=== PATIENT | female | born 1955 | race Caucasian/White ===

== ENCOUNTER 2017-01-16 11:43 | Inpatient (IN) ==
[2017-01-16] MEDS ORDERED: *HR* Morphine 2 MG/ML SYRINGE IVP ONE (11:57)
[2017-01-16] MEDS ORDERED: Ondansetron 4 MG/2 ML VIAL IVP ONE (11:57)
[2017-01-16 12:23] LABS: Basophils % 0.3 %; Eosinophils # 0.1 K/mcL (0.0-0.6); Eosinophils % 0.9 %; Hematocrit 36.8 % (35.3-44.9); Immature Granulocytes % 0.8 % (0-4); Lymphocytes # 1.1 K/mcL (0.6-4.6); Lymphocytes % 11.3 %; Mean Corpuscular HGB Conc 29.9 g/dL (31.6-35.5); Mean Corpuscular Hemoglobin 25.1 pg (28.0-33.3); Mean Platelet Volume 9.5 fL (9.4-12.4); Monocytes # 0.6 K/mcL (0.0-1.3); Monocytes % 5.5 %; Neutrophils # 8.2 K/mcL (1.6-8.9); Platelet Count 220 K/mcL (140-400); Red Blood Count 4.38 M/mcL (3.82-4.97); Red Cell Distribution Width 15.1 % (11.5-14.5); Segmented Neutrophils % 81.2 %
[2017-01-16 12:37] LABS: Albumin/Globulin Ratio 0.5 (1.1-2.2); Bilirubin,Direct 0.2 mg/dL (0.0-0.5); Bilirubin,Indirect 0.2 mg/dL (0.0-1.2); Bilirubin,Total 0.4 mg/dL (0.2-1.2); Calcium 9.9 mg/dL (8.6-10.8); Globulin 5.9 g/dL (2.4-3.5); Potassium 4.5 mEq/L (3.5-4.5); Total Protein 8.9 g/dL (6.0-8.3)
[2017-01-16 13:11] LABS: Bilirubin,Urine Negative (Negative); Blood,Urine Large (Negative); Clarity,Urine Turbid (Clear); Color,Urine Red (Yellow); Glucose,Urine (UA) Normal (Normal); Ketones,Urine Trace mg/dL (Negative); Leukocyte Esterase,Urine Large (Negative); Nitrite,Urine Positive (Negative); PH,Urine 8.5 pH Units (5.0-8.0); Protein,Urine 100 mg/dL (Neg-Trace); Specific Gravity,Urine 1.016 (1.010-1.025); Urobilinogen,Urine Normal (Normal)
[2017-01-16 13:13] LABS: Bacteria,Urine Many per hpf (None-Few); Squamous Epithelial Cell,Urine Many per lpf (None-Few); WBC,Urine TNTC per hpf (0-3)
[2017-01-16 13:14] LABS: RBC,Urine 30-50 per hpf (0-3)
[2017-01-16] MEDS ORDERED: *HR* HYDROcodone/Acet 5/325 mg TABLET PO PRN (15:37)
[2017-01-16] MEDS ORDERED: Acetaminophen 325 MG TABLET PO PRN (15:37)
[2017-01-16] MEDS ORDERED: Naloxone 0.4 MG/ML INJ IVP PRN (15:37)
--- NOTE | 2017-01-16 15:53 | Internal Med History&Physical ---
Date of Encounter: 01/16/17 Time of Encounter: 15:51 Assessment and Plan (1) Obstructive uropathy Current visit: Yes Status: Acute Patient with right sided abdominal pain, nausea and vomiting. CT abd and pelvis showed mild bilateral hydroureteronephrosis due to obstructing 4mm calculus in distal right ureter and 3mm calculus in distal left ureter. IV fluids 0.9NS at 100ml/hr Urology consulted for bilateral obstruction. clear liquid diet until midnight. NPO after midnight for likely cystoscopy tomorrow. (2) Renal calculus, bilateral Current visit: Yes Status: Acute Patient with right sided abdominal pain, nausea and vomiting. CT abd and pelvis showed mild bilateral hydroureteronephrosis due to obstructing 4mm calculus in distal right ureter and 3mm calculus in distal left ureter. IV fluids 0.9NS at 100ml/hr Urology consulted for bilateral obstruction. clear liquid diet until midnight. NPO after midnight for likely cystoscopy tomorrow. (3) Seizure disorder Current visit: Yes Status: Acute History of seizures. Continue home dose of Keppra. Seizure precautions. (4) Urinary tract infection Current visit: Yes Status: Acute UA consistent with UTI. Last culture was quiñonez-sensitive. Rocephin IVPB daily. Await culture resutls. Qualifiers: Urinary tract infection type: site unspecified Hematuria presence: with hematuria Qualified Code(s): N39.0 - Urinary tract infection, site not specified; R31.9 - Hematuria, unspecified (5) DVT prophylaxis Current visit: No Status: Acute anti-embolic stockings patient on xarelto for history of DVTs and CVAs. Holding Xarelto for likely cystoscopy in the morning. Internal Medicine - H&P: HPI Chief complaint: abdominal pain, nausea and vomiting Admitted From: Emergency Dept Plans for Post Hospital Care: Transfer [facility] History of present illness: Ms. Jolly is a 61 year old female with history of DVT, PE, multiple CVAs, with residual left-sided weakness, seizure disorder, GERD, anxiety, who presented from her long-term care facility with complaints of right-sided abdominal pain. Patient reports that the pain started in the middle the night, was initially dull and then progressed to being sharp and worsened. She reports she had some nausea and vomiting this morning as well. Patient denies any headache, lightheadedness, chest pain, palpitations, shortness of breath, diarrhea, fever , chills, sweats. She has an indwelling Clemente catheter, and does not relate any dysuria. Evaluation in the emergency department included a CT of abdomen and pelvis which showed mild bilateral hydroureteronephrosis developed due to an obstructing 4 mm calculus in the distal right ureter and a 3 mm calculus in the distal left ureter. Creatinine is also elevated at 1.19. UA was consistent with UTI with hematuria. On exam, patient alert and oriented, morbidly obese, she does have tenderness on the right side of her abdomen, heart has regular rate and rhythm, lungs are clear bilaterally to auscultation. Past Med Surg Social Fam HX - Past Medical History Medical history: CVA, hyperlipidemia, hypertension, seizures, other Psychiatric history: anxiety, depression - Past Surgical History Surgical History: cholecystectomy, hysterectomy, other - Social History Smoking Status: Never smoker Smokeless Tobacco Status: No Alcohol use: none Drug use: none - Family History Father Living Status: Hx Family Cardiac Disorders: Yes (Congestive heart failure) Mother Living Status: Hx Family Cardiac Disorders: Yes (Cardiac disease) Hx Family Endocrine Disorder: Yes (Diabetes) Internal Medicine - H&P: Meds LevETIRAcetam [Keppra] 1,500 mg PO BID 04/23/15 [History] Melatonin [Melatin] 3 mg PO HS 04/23/15 [History] Multivit with Iron-Minerals [Compete] 1 tab PO QAM 04/23/15 [History] Omeprazole [PriLOSEC] 20 mg PO QAM 04/23/15 [History] Simvastatin [Zocor] 20 mg PO QPM 04/23/15 [History] Citalopram [CeleXA] 40 mg PO DAILY 04/24/15 [History] Quetiapine Fumarate [Seroquel] 50 mg PO QAM 04/24/15 [History] Quetiapine Fumarate [Seroquel] 100 mg PO HS 04/24/15 [History] Rivaroxaban [Xarelto] 20 mg PO DAILY 04/24/15 [History] Dextran 70/Hypromellose [Artificial Tears Eye Drops] 1 drop OP BID 01/16/17 [ History] Ketotifen Fumarate [Zaditor] 1 drop OP BID 01/16/17 [History] LORazepam [Ativan] 1 mg PO Q8H PRN 01/16/17 [History] Menthol [Biofreeze] 1 appl TP TID 01/16/17 [History] Allergies No Known Allergies Allergy (Verified 03/15/15 09:38) All Systems PM: A 10-system review of systems was performed and is negative for pertinent findings except as documented above in the HPI. - Constitutional Constitutional: no chills, no fever(s), no night sweats - EENT Eyes: no change in vision, no discharge, no pain, no photophobia Ears: no ear discharge, no ear pain, no tinnitus Nose, mouth and throat: no dysphagia, no nasal discharge, no neck pain, no sore throat - Cardiovascular Cardiovascular ROS IM: no chest pain, no diaphoresis, no dyspnea, no lightheadedness, no palpitations, no syncope - Respiratory Respiratory: no cough, no dyspnea, no wheezing, no excessive phlegm production - Gastrointestinal Gastrointestinal: abdominal pain, nausea, vomiting, no diarrhea, no hematemesis , no hematochezia, no melena - Genitourinary Genitourinary: no change in urinary stream, no dysuria, no flank pain, no hematuria - Musculoskeletal Musculoskeletal ROS IM: no numbness, no tingling - Integumentary Integumentary IM: no rash, no unusual bruising - Neurological Neurological ROS: focal weakness (chronic left sided), no confusion, no convulsions, no numbness, no tingling, no tremor(s) - Hematologic/Lymphatic Hematologic/Lymphatic: no easy bruising - Constitutional Vitals: Temp Pulse Resp BP Pulse Ox 98.2 F 75 18 128/76 96 01/16/17 11:45 01/16/17 15:04 01/16/17 15:22 01/16/17 15:22 01/16/17 15:04 General appearance: Present: A&O X 3, morbidly obese - Head Head exam: Present: atraumatic, normocephalic - Eye Eye exam: Present: PERRL, conjuntiva pink, sclera anicteric Pupils: Present: PERRL - Neck Neck exam general surgery: Present: supple, trachea midline. Absent: lymphadenopathy - Respiratory Respiratory exam: Present: CTAB. Absent: accessory muscle use, rales, rhonchi, wheezes - Cardiovascular Cardiovascular exam: Present: RRR, +S1, +S2. Absent: diastolic murmur, gallop, rubs, systolic murmur - GI/Abdominal GI/Abdominal exam: Present: normal bowel sounds, soft, tenderness (right sided) , no peritoneal signs. Absent: distended - Extremities Exam Extremities exam: Present: warm, radial pulses palpable and symetrical. Absent : calf tenderness, cyanotic, pedal edema - Neurological Exam Neurological exam: Present: CN II-XII intact, oriented X3. Absent: no focal deficits, strengths equal and symetr throughout, facial droop, speech deficit - Skin Skin exam: Present: dry, intact Internal Med - H&P Results - Labs CBC & Chem 7: 01/16/17 12:17 01/16/17 12:17 Labs: All Lab Results (24 Hours) 01/16/17 01/16/17 01/16/17 Range/Units 12:17 12:17 12:17 WBC 10.1 (4.3-11.1) K/mcL RBC 4.38 (3.82-4.97) M/mcL Hgb 11.0 L (11.5-15.4) g/dL Hct 36.8 (35.3-44.9) % MCV 84.0 (83.0-100.0) fL MCH 25.1 L (28.0-33.3) pg MCHC 29.9 L (31.6-35.5) g/dL RDW 15.1 H (11.5-14.5) % Plt Count 220 (140-400) K/mcL MPV 9.5 (9.4-12.4) fL Immature Gran % 0.8 (0-4) % Seg Neutrophils % 81.2 % Lymphocytes % 11.3 % Monocytes % 5.5 % Eosinophils % 0.9 % Basophils % 0.3 % Neutrophils # 8.2 (1.6-8.9) K/mcL Lymphocytes # 1.1 (0.6-4.6) K/mcL Monocytes # 0.6 (0.0-1.3) K/mcL Eosinophils # 0.1 (0.0-0.6) K/mcL Basophils # 0.0 (0.0-0.2) K/mcL Immature Plt Fraction 2.0 (1.1-6.1) % Sodium 141 (136-145) mEq/L Potassium 4.5 (3.5-4.5) mEq/L Chloride 107 (98-109) mEq/L Carbon Dioxide 25 (19-29) mEq/L BUN 19 (7-20) mg/dL Creatinine 1.19 H (0.57-1.11) mg/dL Est GFR ( Amer) 56 L (> 60) Est GFR (Non-Af Amer) 46 L (> 60) BUN/Creatinine Ratio 16 (6-26) Glucose 138 H (70-99) mg/dL Calculated Osmolality 296 (280-300) Lactic Acid 1.4 (0.5-2.2) mmol/L Calcium 9.9 (8.6-10.8) mg/dL Total Bilirubin 0.4 (0.2-1.2) mg/dL Direct Bilirubin 0.2 (0.0-0.5) mg/dL Indirect Bilirubin 0.2 (0.0-1.2) mg/dL AST 17 (5-34) Units/L ALT 13 (0-55) Units/L Alkaline Phosphatase 87 (38-126) Units/L Troponin I (0-0.03) ng/mL Serum Total Protein 8.9 H (6.0-8.3) g/dL Albumin 3.0 L (3.5-5.0) g/dL Globulin 5.9 H (2.4-3.5) g/dL Albumin/Globulin Ratio 0.5 L (1.1-2.2) Amylase 80 (25-125) Units/L Lipase 51 (8-78) Units/L Urine Color (Yellow) Urine Clarity (Clear) Urine pH (5.0-8.0) pH Units Ur Specific [place] (1.010-1.025) Urine Protein (Neg-Trace) mg/dL Urine Glucose (UA) (Normal) mg/dL Urine Ketones (Negative) mg/dL Urine Blood (Negative) Urine Nitrite (Negative) Urine Bilirubin (Negative) Urine Urobilinogen (Normal) mg/dL Ur Leukocyte Esterase (Negative) Urine Microscopic RBC (0-3) per hpf Urine Microscopic WBC (0-3) per hpf Ur Squamous Epith Cells (None-Few) per lpf Urine Bacteria (None-Few) per hpf Ur Culture Indicated? (NO) 01/16/17 01/16/17 Range/Units 12:17 13:06 WBC (4.3-11.1) K/mcL RBC (3.82-4.97) M/mcL Hgb (11.5-15.4) g/dL Hct (35.3-44.9) % MCV (83.0-100.0) fL MCH (28.0-33.3) pg MCHC (31.6-35.5) g/dL RDW (11.5-14.5) % Plt Count (140-400) K/mcL MPV (9.4-12.4) fL Immature Gran % (0-4) % Seg Neutrophils % % Lymphocytes % % Monocytes % % Eosinophils % % Basophils % % Neutrophils # (1.6-8.9) K/mcL Lymphocytes # (0.6-4.6) K/mcL Monocytes # (0.0-1.3) K/mcL Eosinophils # (0.0-0.6) K/mcL Basophils # (0.0-0.2) K/mcL Immature Plt Fraction (1.1-6.1) % Sodium (136-145) mEq/L Potassium (3.5-4.5) mEq/L Chloride (98-109) mEq/L Carbon Dioxide (19-29) mEq/L BUN (7-20) mg/dL Creatinine (0.57-1.11) mg/dL Est GFR ( Amer) (> 60) Est GFR (Non-Af Amer) (> 60) BUN/Creatinine Ratio (6-26) Glucose (70-99) mg/dL Calculated Osmolality (280-300) Lactic Acid (0.5-2.2) mmol/L Calcium (8.6-10.8) mg/dL Total Bilirubin (0.2-1.2) mg/dL Direct Bilirubin (0.0-0.5) mg/dL Indirect Bilirubin (0.0-1.2) mg/dL AST (5-34) Units/L ALT (0-55) Units/L Alkaline Phosphatase (38-126) Units/L Troponin I 0.00 (0-0.03) ng/mL Serum Total Protein (6.0-8.3) g/dL Albumin (3.5-5.0) g/dL Globulin (2.4-3.5) g/dL Albumin/Globulin Ratio (1.1-2.2) Amylase (25-125) Units/L Lipase (8-78) Units/L Urine Color Red A (Yellow) Urine Clarity Turbid A (Clear) Urine pH 8.5 H (5.0-8.0) pH Units Ur Specific [place] 1.016 (1.010-1.025) Urine Protein 100 H (Neg-Trace) mg/dL Urine Glucose (UA) Normal (Normal) mg/dL Urine Ketones Trace H (Negative) mg/dL Urine Blood Large H (Negative) Urine Nitrite Positive A (Negative) Urine Bilirubin Negative (Negative) Urine Urobilinogen Normal (Normal) mg/dL Ur Leukocyte Esterase Large H (Negative) Urine Microscopic RBC 30-50 H (0-3) per hpf Urine Microscopic WBC TNTC H (0-3) per hpf Ur Squamous Epith Cells Many H (None-Few) per lpf Urine Bacteria Many H (None-Few) per hpf Ur Culture Indicated? YES A (NO) - Diagnostic Studies CT scan - abdomen Additional comments: Abdomen/Pelvis CT 01/16/17 11:57 IMPRESSION: 1. Mild bilateral hydroureteronephrosis has developed due to an obstructing 4 mm calculus in the distal right ureter and an obstructing 3 mm calculus in the distal left ureter. 2. No other acute abnormality in the abdomen or pelvis. D/ / 01/16/2017 14:21:05 Michael Wayne MD / diana Interpreting Provider: Michael Wayne MD
--- NOTE | 2017-01-16 15:54 | Emergency Department Note ---
Disposition Clinical Impression: Kidney stone Urinary tract infection Qualifiers: Urinary tract infection type: site unspecified Hematuria presence: with hematuria Qualified Code(s): N39.0 - Urinary tract infection, site not specified ; R31.9 - Hematuria, unspecified Disposition: Admitted As Inpatient General Adult HPI - General Chief complaint: ED Abdominal Pain Stated complaint: Abd Pain N/V Time Seen by Provider: 01/16/17 11:54 Source: patient, EMS Limitations: no limitations Nursing Notes Reviewed: Yes Vital Signs Reviewed: Yes - History of Present Illness HPI Narrative: 61-year-old female presenting with concern for abdominal pain. She is residing at a local nursing facility after having a stroke. She has no indwelling Clemente catheter. Her pain started acutely today and was located on the right side of her abdomen. She denied recent abdominal surgeries. She has had her gallbladder taken out in the past. She has no vomiting or nausea. She has no history of kidney stones. Pain Scale: 0 - Related Data Home Medications Medication Instructions Recorded Confirmed LevETIRAcetam [Keppra] 1,500 mg PO BID 04/23/15 04/23/15 Melatonin [Melatin] 3 mg PO HS 04/23/15 04/23/15 Multivit with Iron-Minerals 1 each PO QAM 04/23/15 04/23/15 [Compete] Omeprazole [PriLOSEC] 20 mg PO QAM 04/23/15 04/23/15 Simvastatin [Zocor] 20 mg PO QPM 04/23/15 04/23/15 Citalopram [CeleXA] 40 mg PO DAILY 04/24/15 04/24/15 Quetiapine Fumarate [Seroquel] 50 mg PO QAM 04/24/15 04/24/15 Quetiapine Fumarate [Seroquel] 100 mg PO HS 04/24/15 04/24/15 Rivaroxaban [Xarelto] 20 mg PO 04/24/15 04/24/15 Xanax 04/24/15 04/24/15 Previous Rx's Medication Instructions Recorded Amoxicillin/Clavulanate [Augmentin] 875 mg PO BIDWM 3 Days 04/30/15 Allergies Allergy/AdvReac Type Severity Reaction Status Date / Time No Known Allergies Allergy Verified 03/15/15 09:38 All systems ED: reviewed and negative except as stated. 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 - Social History Smoking Status: Never smoker Smokeless Tobacco Status: No Alcohol use: Reports: none Drug use: Reports: none Physical Exam - General Limitations: no limitations General appearance: alert, in no apparent distress - Head Head exam: atraumatic - Eye Eye exam: Present: normal appearance - ENT ENT exam: normal exam, normal oropharynx - Neck Neck exam: Present: normal inspection, full ROM - Chest Chest inspection: Present: normal inspection - Respiratory Respiratory exam: Present: normal lung sounds bilaterally - Cardiovascular Cardiovascular exam: Present: regular rate - Abdominal Exam Abdominal exam: Present: tenderness Abdominal tenderness: Present: RLQ - Extremities Exam Extremities exam: Present: normal inspection, full ROM - Expanded Lower Extremity Exam Hip/Pelvis exam: Present: normal inspection, full ROM Upper leg exam: Present: normal inspection, full ROM Knee exam: Present: normal inspection, full ROM Neurovascular/Tendon exam: Present: normal capillary refill, pulse deficit Gait: observed and normal, not tested/not observed - Back Exam Back exam: Present: normal inspection, full ROM - Neurological Exam Neurological exam: Present: alert, oriented X3, CN II-XII intact - Psychiatric Psychiatric exam: Present: normal affect, normal mood - Skin Skin exam: Present: warm, dry Course Vital Signs Temperature 98.2 F 01/16/17 11:45 Pulse Rate 74 01/16/17 11:45 Respiratory Rate 17 01/16/17 11:45 Blood Pressure 127/73 01/16/17 11:45 O2 Sat by Pulse Oximetry 96 01/16/17 11:45 Temperature 98.2 F 01/16/17 11:45 Pulse Rate 75 01/16/17 15:04 Respiratory Rate 18 01/16/17 15:22 Blood Pressure 128/76 01/16/17 15:22 O2 Sat by Pulse Oximetry 96 01/16/17 15:04 Oxygen Delivery Oxygen Delivery Room Air Medical Decision Making - MDM Narrative Medical decision making narrative: Female patient with bilateral obstructing kidney stones. Clemente catheter is in place. She does have evidence of urinary tract infection. There is concern for underlying infected stone. I did notify the on-call urologist. Antibiotics and blood cultures were obtained. Urology consult was placed. Her vital signs are stable at this time. IV fluids were given. She will be admitted for monitoring, urology evaluation, possibly urology intervention for infected stone. - Medical Records Medical records reviewed: Yes I reviewed the patient's medical records. - Lab Data Lab results reviewed: Yes I reviewed the patient's lab results. Result diagrams: 01/16/17 12:17 01/16/17 12:17 Lab Results 01/16/17 01/16/17 01/16/17 Range/Units 12:17 12:17 12:17 WBC 10.1 (4.3-11.1) K/mcL RBC 4.38 (3.82-4.97) M/mcL Hgb 11.0 L (11.5-15.4) g/dL Hct 36.8 (35.3-44.9) % MCV 84.0 (83.0-100.0) fL MCH 25.1 L (28.0-33.3) pg MCHC 29.9 L (31.6-35.5) g/dL RDW 15.1 H (11.5-14.5) % Plt Count 220 (140-400) K/mcL MPV 9.5 (9.4-12.4) fL Immature Gran % 0.8 (0-4) % Seg Neutrophils % 81.2 % Lymphocytes % 11.3 % Monocytes % 5.5 % Eosinophils % 0.9 % Basophils % 0.3 % Neutrophils # 8.2 (1.6-8.9) K/mcL Lymphocytes # 1.1 (0.6-4.6) K/mcL Monocytes # 0.6 (0.0-1.3) K/mcL Eosinophils # 0.1 (0.0-0.6) K/mcL Basophils # 0.0 (0.0-0.2) K/mcL Immature Plt Fraction 2.0 (1.1-6.1) % Sodium 141 (136-145) mEq/L Potassium 4.5 (3.5-4.5) mEq/L Chloride 107 (98-109) mEq/L Carbon Dioxide 25 (19-29) mEq/L BUN 19 (7-20) mg/dL Creatinine 1.19 H (0.57-1.11) mg/dL Est GFR ( Amer) 56 L (> 60) Est GFR (Non-Af Amer) 46 L (> 60) BUN/Creatinine Ratio 16 (6-26) Glucose 138 H (70-99) mg/dL Calculated Osmolality 296 (280-300) Lactic Acid 1.4 (0.5-2.2) mmol/L Calcium 9.9 (8.6-10.8) mg/dL Total Bilirubin 0.4 (0.2-1.2) mg/dL Direct Bilirubin 0.2 (0.0-0.5) mg/dL Indirect Bilirubin 0.2 (0.0-1.2) mg/dL AST 17 (5-34) Units/L ALT 13 (0-55) Units/L Alkaline Phosphatase 87 (38-126) Units/L Troponin I (0-0.03) ng/mL Serum Total Protein 8.9 H (6.0-8.3) g/dL Albumin 3.0 L (3.5-5.0) g/dL Globulin 5.9 H (2.4-3.5) g/dL Albumin/Globulin Ratio 0.5 L (1.1-2.2) Amylase 80 (25-125) Units/L Lipase 51 (8-78) Units/L Urine Color (Yellow) Urine Clarity (Clear) Urine pH (5.0-8.0) pH Units Ur Specific [place] (1.010-1.025) Urine Protein (Neg-Trace) mg/dL Urine Glucose (UA) (Normal) mg/dL Urine Ketones (Negative) mg/dL Urine Blood (Negative) Urine Nitrite (Negative) Urine Bilirubin (Negative) Urine Urobilinogen (Normal) mg/dL Ur Leukocyte Esterase (Negative) Urine Microscopic RBC (0-3) per hpf Urine Microscopic WBC (0-3) per hpf Ur Squamous Epith Cells (None-Few) per lpf Urine Bacteria (None-Few) per hpf Ur Culture Indicated? (NO) 01/16/17 01/16/17 Range/Units 12:17 13:06 WBC (4.3-11.1) K/mcL RBC (3.82-4.97) M/mcL Hgb (11.5-15.4) g/dL Hct (35.3-44.9) % MCV (83.0-100.0) fL MCH (28.0-33.3) pg MCHC (31.6-35.5) g/dL RDW (11.5-14.5) % Plt Count (140-400) K/mcL MPV (9.4-12.4) fL Immature Gran % (0-4) % Seg Neutrophils % % Lymphocytes % % Monocytes % % Eosinophils % % Basophils % % Neutrophils # (1.6-8.9) K/mcL Lymphocytes # (0.6-4.6) K/mcL Monocytes # (0.0-1.3) K/mcL Eosinophils # (0.0-0.6) K/mcL Basophils # (0.0-0.2) K/mcL Immature Plt Fraction (1.1-6.1) % Sodium (136-145) mEq/L Potassium (3.5-4.5) mEq/L Chloride (98-109) mEq/L Carbon Dioxide (19-29) mEq/L BUN (7-20) mg/dL Creatinine (0.57-1.11) mg/dL Est GFR ( Amer) (> 60) Est GFR (Non-Af Amer) (> 60) BUN/Creatinine Ratio (6-26) Glucose (70-99) mg/dL Calculated Osmolality (280-300) Lactic Acid (0.5-2.2) mmol/L Calcium (8.6-10.8) mg/dL Total Bilirubin (0.2-1.2) mg/dL Direct Bilirubin (0.0-0.5) mg/dL Indirect Bilirubin (0.0-1.2) mg/dL AST (5-34) Units/L ALT (0-55) Units/L Alkaline Phosphatase (38-126) Units/L Troponin I 0.00 (0-0.03) ng/mL Serum Total Protein (6.0-8.3) g/dL Albumin (3.5-5.0) g/dL Globulin (2.4-3.5) g/dL Albumin/Globulin Ratio (1.1-2.2) Amylase (25-125) Units/L Lipase (8-78) Units/L Urine Color Red A (Yellow) Urine Clarity Turbid A (Clear) Urine pH 8.5 H (5.0-8.0) pH Units Ur Specific [place] 1.016 (1.010-1.025) Urine Protein 100 H (Neg-Trace) mg/dL Urine Glucose (UA) Normal (Normal) mg/dL Urine Ketones Trace H (Negative) mg/dL Urine Blood Large H (Negative) Urine Nitrite Positive A (Negative) Urine Bilirubin Negative (Negative) Urine Urobilinogen Normal (Normal) mg/dL Ur Leukocyte Esterase Large H (Negative) Urine Microscopic RBC 30-50 H (0-3) per hpf Urine Microscopic WBC TNTC H (0-3) per hpf Ur Squamous Epith Cells Many H (None-Few) per lpf Urine Bacteria Many H (None-Few) per hpf Ur Culture Indicated? YES A (NO)
--- NOTE | 2017-01-16 16:09 | Event Note ---
Date of Encounter: 01/16/17 Time of Encounter: 16:07 Patient seen and examined with nurse practitioner. Patients with chronic horn presents with right lower quadrant abdominal pain. She has a urinary tract infection and bilateral obstructive neuropathy. She is hemodynamically stable. No fever or leukocytosis. According to prior cultures ceftriaxone will be given. Urology has been contacted. She will be NPO after midnight. Holds her also. She is do not intubate do not resuscitate
[2017-01-16] MEDS: *HR* Morphine 2 MG/ML SYRINGE IVP PRN (17:25)
[2017-01-16] MEDS: 0.9 % Sodium Chloride 1,000 ML IVC SCH (17:28)
[2017-01-16] MEDS ORDERED: *HR* LORazepam 1 MG TABLET PO PRN (18:20)
[2017-01-16] MEDS ORDERED: Ondansetron 4 MG/2 ML VIAL ONE (18:41)
[2017-01-16] MEDS: Ondansetron 4 MG/2 ML VIAL IVP SCH (19:09)
[2017-01-16] MEDS: levETIRAcetam 250 MG TABLET PO SCH (20:52)
[2017-01-16] MEDS ORDERED: Melatonin 3 MG TABLET PO SCH (21:00)
[2017-01-17] MEDS ORDERED: Ondansetron 4 MG/2 ML VIAL IVP SCH
[2017-01-17] MEDS: Ondansetron 4 MG/2 ML VIAL IVP SCH ×3 (00:58→12:00)
[2017-01-17] MEDS: 0.9 % Sodium Chloride 1,000 ML IVC SCH ×2 (05:59→09:39)
[2017-01-17 06:01] LABS: Basophils % 0.2 %; Eosinophils % 0.2 %; Hematocrit 33.6 % (35.3-44.9); Immature Granulocytes % 0.7 % (0-4); Mean Corpuscular HGB Conc 29.8 g/dL (31.6-35.5); Mean Corpuscular Hemoglobin 25.2 pg (28.0-33.3); Mean Corpuscular Volume 84.6 fL (83.0-100.0); Mean Platelet Volume 10.1 fL (9.4-12.4); Monocytes # 1.1 K/mcL (0.0-1.3); Monocytes % 8.3 %; Neutrophils # 11.5 K/mcL (1.6-8.9); Platelet Count 177 K/mcL (140-400); Red Blood Count 3.97 M/mcL (3.82-4.97); Red Cell Distribution Width 15.5 % (11.5-14.5); Segmented Neutrophils % 83.6 %
[2017-01-17 06:13] LABS: Potassium 4.2 mEq/L (3.5-4.5)
--- NOTE | 2017-01-17 07:20 | Urology - Consult Note ---
Date of Encounter: 01/17/17 Time of Encounter: 07:18 - Assessment and Plan (1) Kidney stone Current Visit: Yes Status: Acute Assessment and plan: 61-year-old woman with bilateral distal ureteral stones and concern for urinary tract infection. The stones are located quite distal and I think be reasonable to just get them treated rather than just placing stents and delaying treatment. I spoke with her daughter who is the power of commercial real estate attorney to discuss the case. I have consented her for a bilateral ureteroscopy, laser lithotripsy, and stent placement. She was informed of the risks of the surgery which include but are not limited to bleeding, infection, injury to other structures, need for further procedures, incomplete treatment, need for nephrostomy tube, need for open repair, and the risk of anesthesia. She is willing to proceed. (2) Urinary tract infection Current Visit: Yes Status: Acute Assessment and plan: She has a history of urinary tract infection and a chronic indwelling catheter. She is currently on ceftriaxone. We will continue the IV antibiotics until the culture results finalized. Qualifiers: Urinary tract infection type: site unspecified Hematuria presence: with hematuria Qualified Code(s): N39.0 - Urinary tract infection, site not specified; R31.9 - Hematuria, unspecified Urology CN:HPI Consult date: 01/17/17 Reason for consult Urology: Other (bilateral stones) History of present illness: 61-year-old woman presents with a history of lower abdominal and flank pain. She came to the emergency room from her [facility]. She has a long-term indwelling catheter. A CT scan was performed which showed bilateral distal ureteral stones with evidence of bilateral hydronephrosis. Her renal function was okay at 1.19 upon admission. She was afebrile. She was admitted for IV antibiotics and further care. Overnight she has noted some nausea. She has had some low-grade temperature. White blood cell count has slightly elevated as has her creatinine. I placed a call to her power of commercial real estate attorney to discuss her care. We spoke over the telephone. I relayed to her all my plans. Past Med Surg Social Fam HX - Past Medical History Medical history: CVA, hyperlipidemia, hypertension, seizures, other Psychiatric history: anxiety, depression - Past Surgical History Surgical History: cholecystectomy, hysterectomy, other - Social History Smoking Status: Never smoker Smokeless Tobacco Status: No Alcohol use: none Drug use: none - Family History Father Living Status: Hx Family Cardiac Disorders: Yes (Congestive heart failure) Mother Living Status: Age at : 64 Cause of : Stroke Hx Family Cardiac Disorders: Yes (Cardiac disease) Hx Family Respiratory Disorders: Yes Hx Family Cancer: No Hx Family GI Disorders: No Hx Family Genitourinary Disorders: No Hx Family Endocrine Disorder: Yes (Diabetes) Hx Family Musculoskeletal Disorders: No Hx Family Neuromuscular Disorders: No Hx Family Neurologic Disorders: Yes (Parkinsons) Hx Family HEENT Disorders: No Hx Family Autoimmune Disorders: Yes (Lupas) Hx Family Reproductive Disorders: No Hx Family Psychosocial Disorders: No Hx Family Medical Disorders: No Medications and Allergies LevETIRAcetam [Keppra] 1,500 mg PO BID 04/23/15 [History] Melatonin [Melatin] 3 mg PO HS 04/23/15 [History] Multivit with Iron-Minerals [Compete] 1 tab PO QAM 04/23/15 [History] Omeprazole [PriLOSEC] 20 mg PO QAM 04/23/15 [History] Simvastatin [Zocor] 20 mg PO QPM 04/23/15 [History] Citalopram [CeleXA] 40 mg PO DAILY 04/24/15 [History] Quetiapine Fumarate [Seroquel] 50 mg PO QAM 04/24/15 [History] Quetiapine Fumarate [Seroquel] 100 mg PO HS 04/24/15 [History] Rivaroxaban [Xarelto] 20 mg PO DAILY 04/24/15 [History] Dextran 70/Hypromellose [Artificial Tears Eye Drops] 1 drop OP BID 01/16/17 [ History] Ketotifen Fumarate [Zaditor] 1 drop OP BID 01/16/17 [History] LORazepam [Ativan] 1 mg PO Q8H PRN 01/16/17 [History] Menthol [Biofreeze] 1 appl TP TID 01/16/17 [History] Allergies No Known Allergies Allergy (Verified 03/15/15 09:38) Review of Systems ROS unobtainable: due to mental status Exam Initial Vital Signs Temp Pulse Resp BP Pulse Ox 98.2 F 74 17 127/73 96 01/16/17 11:45 01/16/17 11:45 01/16/17 11:45 01/16/17 11:45 01/16/17 11:45 - General physical appearance Present: well developed, well nourished, no distress - Eyes Absent: icteric - ENT Present: normal nares - Neck Present: trachea midline - Respiratory Present: normal respiratory effort - Cardiovascular Cardiovascular exam IM: RRR - Abdomen Abdomen: Present: soft - Genitourinary Present: other (Indwelling catheter.) Urology Results - Labs 01/17/17 03:28 01/17/17 03:28 Abnormal lab results WBC 13.8 K/mcL (4.3-11.1) H 01/17/17 03:28 Hgb 10.0 g/dL (11.5-15.4) L 01/17/17 03:28 Hct 33.6 % (35.3-44.9) L 01/17/17 03:28 MCH 25.2 pg (28.0-33.3) L 01/17/17 03:28 MCHC 29.8 g/dL (31.6-35.5) L 01/17/17 03:28 RDW 15.5 % (11.5-14.5) H 01/17/17 03:28 Neutrophils # 11.5 K/mcL (1.6-8.9) H 01/17/17 03:28 BUN 22 mg/dL (7-20) H 01/17/17 03:28 Creatinine 1.72 mg/dL (0.57-1.11) H 01/17/17 03:28 Est GFR ( Amer) 37 (> 60) L 01/17/17 03:28 Est GFR (Non-Af Amer) 30 (> 60) L 01/17/17 03:28 Glucose 128 mg/dL (70-99) H 01/17/17 03:28 POC Glucose 127 (58-89) H 01/17/17 05:55 Calculated Osmolality 301 (280-300) H 01/17/17 03:28 Serum Total Protein 8.9 g/dL (6.0-8.3) H 01/16/17 12:17 Albumin 3.0 g/dL (3.5-5.0) L 01/16/17 12:17 Globulin 5.9 g/dL (2.4-3.5) H 01/16/17 12:17 Albumin/Globulin Ratio 0.5 (1.1-2.2) L 01/16/17 12:17 Urine Color Red (Yellow) A 01/16/17 13:06 Urine Clarity Turbid (Clear) A 01/16/17 13:06 Urine pH 8.5 pH Units (5.0-8.0) H 01/16/17 13:06 Urine Protein 100 mg/dL (Neg-Trace) H 01/16/17 13:06 Urine Ketones Trace mg/dL (Negative) H 01/16/17 13:06 Urine Blood Large (Negative) H 01/16/17 13:06 Urine Nitrite Positive (Negative) A 01/16/17 13:06 Ur Leukocyte Esterase Large (Negative) H 01/16/17 13:06 Urine Microscopic RBC 30-50 per hpf (0-3) H 01/16/17 13:06 Urine Microscopic WBC TNTC per hpf (0-3) H 01/16/17 13:06 Ur Squamous Epith Cells Many per lpf (None-Few) H 01/16/17 13:06 Urine Bacteria Many per hpf (None-Few) H 01/16/17 13:06 Ur Culture Indicated? YES (NO) A 01/16/17 13:06 Diabetes panel 01/17/17 Range/Units 03:28 Sodium 143 (136-145) mEq/L Potassium 4.2 (3.5-4.5) mEq/L Chloride 109 (98-109) mEq/L Carbon Dioxide 24 (19-29) mEq/L BUN 22 H (7-20) mg/dL Creatinine 1.72 H (0.57-1.11) mg/dL Glucose 128 H (70-99) mg/dL Calcium 9.0 (8.6-10.8) mg/dL Calcium panel 01/17/17 Range/Units 03:28 Calcium 9.0 (8.6-10.8) mg/dL Pituitary panel 01/17/17 Range/Units 03:28 Sodium 143 (136-145) mEq/L Potassium 4.2 (3.5-4.5) mEq/L Chloride 109 (98-109) mEq/L Carbon Dioxide 24 (19-29) mEq/L BUN 22 H (7-20) mg/dL Creatinine 1.72 H (0.57-1.11) mg/dL Glucose 128 H (70-99) mg/dL Calcium 9.0 (8.6-10.8) mg/dL Adrenal panel 01/17/17 Range/Units 03:28 Sodium 143 (136-145) mEq/L Potassium 4.2 (3.5-4.5) mEq/L Chloride 109 (98-109) mEq/L Carbon Dioxide 24 (19-29) mEq/L BUN 22 H (7-20) mg/dL Creatinine 1.72 H (0.57-1.11) mg/dL Glucose 128 H (70-99) mg/dL Calcium 9.0 (8.6-10.8) mg/dL All other labs normal. - Imaging CT scan - abdomen: report reviewed, image reviewed CT scan - pelvis: report reviewed, image reviewed Consult Discharge Plan - Plan Referrals: John Bowden MD [Primary Care Provider] -
[2017-01-17] MEDS: levETIRAcetam 250 MG TABLET PO SCH ×2 (09:45→21:08)
[2017-01-17] MEDS: *HR* Morphine 2 MG/ML SYRINGE IVP PRN (09:49)
--- NOTE | 2017-01-17 13:30 | Internal Med Progress Note ---
Date of Encounter: 01/17/17 Time of Encounter: 13:26 - Assessment and plan (1) Obstructive uropathy Current Visit: Yes Status: Acute Assessment and plan: Patient with right sided abdominal pain, nausea and vomiting. CT abd and pelvis showed mild bilateral hydroureteronephrosis due to obstructing 4mm calculus in distal right ureter and 3mm calculus in distal left ureter. Urology consulted for bilateral obstruction,planned today for bilateral ureteroscopy, laser lithotripsy, and stent placement. NPO currently, continue IVF. (2) Urinary tract infection Current Visit: Yes Status: Acute Assessment and plan: She has a history of urinary tract infection and a chronic indwelling catheter. She is currently on ceftriaxone. We will continue the IV antibiotics until the culture results finalized. Qualifiers: Urinary tract infection type: site unspecified Hematuria presence: with hematuria Qualified Code(s): N39.0 - Urinary tract infection, site not specified; R31.9 - Hematuria, unspecified (3) Renal calculus, bilateral Current Visit: Yes Status: Acute Assessment and plan: as above (4) Seizure disorder Current Visit: Yes Status: Acute Assessment and plan: last seen by neurology in April 2015 when she presented with seizure disorder. Noted to be taking Keppra 1500 bid, patient now noted to be taking 1500 bid of Keppra. No active seizures for now, we will continue the same. - Subjective Interval history: Patient admitted for abdominal pain, CT abdomen showed mild bilateral hydro uretero nephrosis with bilateral ureteric stone, urology consulted. Patient appears to be mildly confused, which appears to be her baseline, history of CVA in the past with left-sided weakness. Urology has been consulted. - Constitutional Vitals: Temp Pulse Resp BP Pulse Ox 98.6 F 86 18 94/60 93 01/17/17 11:29 01/17/17 11:29 01/17/17 11:29 01/17/17 11:29 01/17/17 11:29 General appearance: Present: A&O X 3, morbidly obese Exam: - Head Head exam: Present: atraumatic, normocephalic - Eye Eye exam: Present: PERRL, conjuntiva pink, sclera anicteric Pupils: Present: PERRL - Neck Neck exam general surgery: Present: supple, trachea midline. Absent: lymphadenopathy - Respiratory Respiratory exam: Present: CTAB. Absent: accessory muscle use, rales, rhonchi, wheezes - Cardiovascular Cardiovascular exam: Present: RRR, +S1, +S2. Absent: diastolic murmur, gallop, rubs, systolic murmur - GI/Abdominal GI/Abdominal exam: Present: normal bowel sounds, soft, non tender, no peritoneal signs. Absent: distended - Extremities Exam Extremities exam: Present: warm, radial pulses palpable and symetrical. Absent : calf tenderness, cyanotic, pedal edema - Neurological Exam Neurological exam: Present: CN II-XII intact, oriented X3. Absent: no focal deficits, strengths equal and symetr throughout, facial droop, speech deficit - Skin Skin exam: Present: dry, intact Internal Medicine: Result - Labs CBC & Chem 7: 01/17/17 03:28 01/17/17 03:28 Labs: Short CBC 01/17/17 Range/Units 03:28 WBC 13.8 H (4.3-11.1) K/mcL Hgb 10.0 L (11.5-15.4) g/dL Hct 33.6 L (35.3-44.9) % Plt Count 177 (140-400) K/mcL Neutrophils # 11.5 H (1.6-8.9) K/mcL BMP 01/17/17 03:28 Sodium 143 Potassium 4.2 Chloride 109 Carbon Dioxide 24 BUN 22 H Creatinine 1.72 H Glucose 128 H Calcium 9.0 Consult Discharge Plan - Plan Referrals: John Bowden MD [Primary Care Provider] -
[2017-01-17] MEDS ORDERED: *HR* Propofol 200 MG/20 ML VIAL IVP ONE (14:36)
[2017-01-17] MEDS ORDERED: *HR* FentaNYL (PF) 100 MCG/2 ML VIAL ONE (14:36)
[2017-01-17] MEDS ORDERED: Dexamethasone 4 MG/ML VIAL ONE (14:37)
[2017-01-17] MEDS ORDERED: Lidocaine -MPF 2% 2 ML VIAL ONE (14:37)
[2017-01-17] MEDS ORDERED: Ondansetron 4 MG/2 ML VIAL ONE (14:37)
[2017-01-17] MEDS ORDERED: *HR* Midazolam HCl 2 MG/2 ML VIAL ONE (14:37)
--- NOTE | 2017-01-17 14:44 | Anesthesia Evaluation PreOp ---
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, Other (anxiety) Other Medical History: Renal (stones), GERD Anesthesia History: No Prior Anesthetic Complications, Past Anesthesia ( cholecyst, hysterect) Alcohol Use: none Drug use: none Medications and Allergies LevETIRAcetam [Keppra] 1,500 mg PO BID 04/23/15 [History] Melatonin [Melatin] 3 mg PO HS 04/23/15 [History] Multivit with Iron-Minerals [Compete] 1 tab PO QAM 04/23/15 [History] Omeprazole [PriLOSEC] 20 mg PO QAM 04/23/15 [History] Simvastatin [Zocor] 20 mg PO QPM 04/23/15 [History] Citalopram [CeleXA] 40 mg PO DAILY 04/24/15 [History] Quetiapine Fumarate [Seroquel] 50 mg PO QAM 04/24/15 [History] Quetiapine Fumarate [Seroquel] 100 mg PO HS 04/24/15 [History] Rivaroxaban [Xarelto] 20 mg PO DAILY 04/24/15 [History] Dextran 70/Hypromellose [Artificial Tears Eye Drops] 1 drop OP BID 01/16/17 [ History] Ketotifen Fumarate [Zaditor] 1 drop OP BID 01/16/17 [History] LORazepam [Ativan] 1 mg PO Q8H PRN 01/16/17 [History] Menthol [Biofreeze] 1 appl TP TID 01/16/17 [History] Allergies No Known Allergies Allergy (Verified 03/15/15 09:38) - Meds/Allergy Pre-op Review Medications Reviewed: Yes Allergies Reviewed: Yes Beta Blockers on Current Med List: No Anesthesia Results - Labs 01/17/17 03:28 01/17/17 03:28 Anesthesia Exam O2 Sat Height 1.63 m Weight 102.5 kg O2 Sat by Pulse Oximetry 93 O2 Sat by Pulse Oximetry 95 O2 Sat by Pulse Oximetry 92 O2 Sat by Pulse Oximetry 92 O2 Sat by Pulse Oximetry 95 O2 Sat by Pulse Oximetry 96 O2 Sat by Pulse Oximetry 96 Vital Signs Temp Pulse Resp BP Pulse Ox 98.2 F 74 17 127/73 96 01/16/17 11:45 01/16/17 11:45 01/16/17 11:45 01/16/17 11:45 01/16/17 11:45 Height: 1.63 Weight: 102 NPO (# of Hours): >8 Anesthesia Assess/Plan ASA Score: 3 Modified Katty Scale for Level of Consciousness: Cooperative, oriented, and tranquil Anesthetic Plan: General Monitoring Plan: Standard Monitors Recovery Plan: PACU <Dawit Cole - Last Filed: 01/17/17 15:11> Date of Encounter: 01/17/17 - Past History Cardiac History: HTN, Hyperlipidemia, Other CUTTER HELPER History: Seizures, CVA, Other Other Medical History: Renal Anesthesia History: No Prior Anesthetic Complications, Past Anesthesia Alcohol Use: none Drug use: none - Meds/Allergy Pre-op Review Medications Reviewed: Yes Allergies Reviewed: Yes Beta Blockers on Current Med List: No Anesthesia Results - Labs 01/17/17 03:28 01/17/17 03:28 - Imaging EKG: report reviewed (SR) Anesthesia Exam - HEENT Pupil (Motor): Pupils equal, EOMI Mallampati: III Teeth: Edentulous Denture Type: Upper: Complete Oral Opening: Less than or equal to 3 - CUTTER HELPER LOC: Oriented CUTTER HELPER Motor: Normal RUE, Normal LUE, Normal RLE, Normal LLE, Normal Face CUTTER HELPER Sensory: Normal: RUE, LUE, RLE, LLE, Face - Cardiac Rhythm: Regular Murmur: None JVD: No Carotid Bruit: No - Pulmonary Breath Sounds: bilateral Clear Respiratory Effort: Symmetrical Anesthesia Assess/Plan ASA Score: 3 Modified Huntington Scale for Level of Consciousness: Cooperative, oriented, and tranquil Anesthetic Plan: General Monitoring Plan: Standard Monitors Recovery Plan: PACU
[2017-01-17] MEDS ORDERED: *HR* HYDROmorphone (PF) 1 MG/ML SYRINGE IVP PRN (16:19)
[2017-01-17] MEDS ORDERED: *HR* Morphine 2 MG/ML SYRINGE IVP PRN ×2 (16:19→18:02)
[2017-01-17] MEDS ORDERED: *HR* Promethazine 25 MG/ML VIAL IVP PRN (16:19)
[2017-01-17] MEDS ORDERED: Ondansetron 4 MG/2 ML VIAL IVP ONE (16:19)
[2017-01-17] MEDS ORDERED: *HR* Labetalol 100 MG/20 ML MDV IVP PRN (16:19)
--- NOTE | 2017-01-17 16:37 | Operative Note ---
Date of procedure: 01/17/17 Pre-op diagnosis: Bilateral ureteral stones Post-op diagnosis: same Procedure: Bilateral ureteroscopy, right retrograde pyelogram, right ureteral stone extraction, left laser lithotripsy, left basket stone extraction, bilateral stent placements Implants: Bilateral 6 [place] x 24 cm JJ stents. Complications: none. Anesthesia: SEKOU Surgeon: Magan Mortensen Estimated blood loss (cc): 2 Specimen: left ureteral stone Condition: stable Disposition: PACU Procedure in Detail: Indications: Casie is a 61-year-old woman who has a history of bilateral stones. A CT scan showed bilateral hydronephrosis with bilateral distal ureteral stones. She has an indwelling catheter and there is concern for a urinary tract infection. Since the stones were distal she elected undergo a bilateral ureteroscopy, laser lithotripsy, basket stone extraction, and bilateral ureteral stent placement. She is aware of the risks of the procedure including but not limited to bleeding, infection, injury to other structures, need for further procedures , need for stent, stent irritation, need for nephrostomy tube, incomplete treatment, need for open repair, risks unforeseen, and the risk of anesthesia. She is on proceed. Procedure: After informed consent was obtained the patient was brought back to the operating room and placed in supine position. A time out was performed. General anesthesia was administered and an endotracheal tube was placed. She was then placed in the lithotomy position. She was prepped and draped in the usual sterile fashion. Cystoscopy was performed. The anterior urethra was normal. There was no evidence of bladder tumors. The ureteral orifices were in the normal orthotopic position. The bladder was inflamed. An open ended catheter was placed into the right ureteral orifice. A retrograde pyelogram was performed. A filling defect was noted in the distal ureter. The Zip wire was placed in the right ureteral orifice and brought into the kidney under fluoroscopic guidance. The open-ended catheter was removed. The ureter was dilated with the 8/10 [place] ureteral dilator. I then advanced the semirigid ureteroscope into the ureter. The stone irrigated out of the ureter. Attention was then turned to the left ureter. The left ureter was cannulated with a sensor wire and this was brought up into the kidney under fluoroscopic guidance. I then advanced the semirigid ureteroscope into the ureter. the stone was fragmented into small pieces using the 200 micron laser fiber. The stone fragments were basket extracted. Bilateral 6 [place] by 24cm JJ stent were then placed with good curls seen in the kidney and the bladder. The dangle strings were removed. A horn catheter was placed. The patient was then awakened from general anesthesia and brought to recovery room in good condition. All sponge, needle, and instrument counts were correct.
--- NOTE | 2017-01-17 17:28 | Anesthesia Evaluation Post Op ---
Date of Encounter: 01/17/17 Time of Encounter: 17:27 - Vital Signs Vital Signs: Vital Signs/O2 Sat/Glucose, Most Current Temp Pulse Resp BP Pulse Ox 01/17/17 17:16 100.3 F H 83 20 141/78 93 01/17/17 17:06 80 20 134/80 95 01/17/17 16:56 84 20 121/78 93 01/17/17 16:46 98.8 F 90 14 121/80 94 - Lungs Lungs: Clear Ascult./Percussion - Airway Airway: Non-obstructed - Cardiovascular Regular Rate - Mental Status Mental Status: Alert & Oriented, Answers Appropriately - Pain Pain Scale: 0 - Nausea Vomiting Nausea Vomiting: Not Present - Hydration Hydration: Tolerates oral liquids - Discharge PostOp Status: Transfer Patient to floor
[2017-01-17] MEDS ORDERED: Naloxone 0.4 MG/ML INJ IVP PRN (18:02)
[2017-01-17] MEDS ORDERED: *HR* HYDROcodone/Acet 5/325 mg TABLET PO PRN (18:02)
[2017-01-17] MEDS ORDERED: *HR* LORazepam 1 MG TABLET PO PRN (18:02)
[2017-01-17] MEDS ORDERED: 0.9 % Sodium Chloride 1,000 ML IVC SCH (18:02)
[2017-01-17] MEDS ORDERED: Acetaminophen 325 MG TABLET PO PRN (18:02)
[2017-01-17] MEDS ORDERED: Melatonin 3 MG TABLET PO SCH (21:00)
[2017-01-18] MEDS: Ondansetron 4 MG/2 ML VIAL IVP SCH ×3 (00:10→12:03)
--- NOTE | 2017-01-18 07:14 | Urology Progress Note ---
Date of Encounter: 01/18/17 Time of Encounter: 07:12 - Assessment and Plan (1) Kidney stone Current Visit: Yes Status: Acute Assessment and plan: Stones treated yesterday. Did well. 1. Continue indwelling stents. Will remove in the office in 10-14 days. 2. Will follow along. (2) Urinary tract infection Current Visit: Yes Status: Acute Assessment and plan: Urine culture is pending with GNR. 1. Await results of culture. 2. Continue antibiotics. Qualifiers: Urinary tract infection type: site unspecified Hematuria presence: with hematuria Qualified Code(s): N39.0 - Urinary tract infection, site not specified; R31.9 - Hematuria, unspecified Progress Note Narrative: Patient sleeping this morning. POD #1 s/p bilateral ureteroscopy, stone extraction, left laser lithotripsy, and stent placement. Did well overnight. Low grade fever after surgery, but afebrile now. Objective Initial Vital Signs Temp Pulse Resp BP Pulse Ox 98.2 F 74 17 127/73 96 01/16/17 11:45 01/16/17 11:45 01/16/17 11:45 01/16/17 11:45 01/16/17 11:45 - General physical appearance Present: well developed, well nourished, no distress - Respiratory Present: normal respiratory effort - Genitourinary Urine Appearance: Present: Clear (clear to light peach, less purulent.) - Labs 01/17/17 03:28 01/17/17 03:28 - VTE Documentation of Mechanical Device: Intermittent pneumatic compression device Consult Discharge Plan - Plan Referrals: John Bowden MD [Primary Care Provider] -
[2017-01-18 08:07] LABS: Basophils % 0.1 %; Eosinophils % 0.1 %; Hematocrit 29.6 % (35.3-44.9); Hemoglobin 8.9 g/dL (11.5-15.4); Immature Granulocytes % 1.2 % (0-4); Lymphocytes # 1.1 K/mcL (0.6-4.6); Lymphocytes % 10.9 %; Mean Corpuscular HGB Conc 30.1 g/dL (31.6-35.5); Mean Corpuscular Hemoglobin 25.6 pg (28.0-33.3); Mean Corpuscular Volume 85.3 fL (83.0-100.0); Mean Platelet Volume 10.3 fL (9.4-12.4); Monocytes # 0.7 K/mcL (0.0-1.3); Monocytes % 6.4 %; Neutrophils # 8.3 K/mcL (1.6-8.9); Platelet Count 162 K/mcL (140-400); Red Blood Count 3.47 M/mcL (3.82-4.97); Red Cell Distribution Width 15.5 % (11.5-14.5); Segmented Neutrophils % 81.3 %
[2017-01-18 08:12] LABS: Calcium 8.9 mg/dL (8.6-10.8); Potassium 4.1 mEq/L (3.5-4.5)
[2017-01-18] MEDS: levETIRAcetam 250 MG TABLET PO SCH (09:21)
[2017-01-18] MEDS ORDERED: Cefdinir 300 MG CAPSULE PO SCH (10:30)
--- NOTE | 2017-01-18 15:44 | Discharge Summary ---
Date of Encounter: 01/18/17 Time of Encounter: 15:42 - Discharge Diagnosis (1) Obstructive uropathy Priority: Primary Status: Acute (2) Urinary tract infection Priority: Primary Status: Acute Qualifiers: Urinary tract infection type: site unspecified Hematuria presence: with hematuria Qualified Code(s): N39.0 - Urinary tract infection, site not specified; R31.9 - Hematuria, unspecified (3) Renal calculus, bilateral Priority: Primary Status: Acute (4) Seizure disorder Priority: Secondary Status: Acute - Discharge Medications Prescriptions: Cefdinir [Omnicef] 300 mg PO BID 7 Days Home Medications: LevETIRAcetam [Keppra] 1,500 mg PO BID 04/23/15 [History] Melatonin [Melatin] 3 mg PO HS 04/23/15 [History] Multivit with Iron-Minerals [Compete] 1 tab PO QAM 04/23/15 [History] Omeprazole [PriLOSEC] 20 mg PO QAM 04/23/15 [History] Simvastatin [Zocor] 20 mg PO QPM 04/23/15 [History] Citalopram [CeleXA] 40 mg PO DAILY 04/24/15 [History] Quetiapine Fumarate [Seroquel] 50 mg PO QAM 04/24/15 [History] Quetiapine Fumarate [Seroquel] 100 mg PO HS 04/24/15 [History] Rivaroxaban [Xarelto] 20 mg PO DAILY 04/24/15 [History] Dextran 70/Hypromellose [Artificial Tears Eye Drops] 1 drop OP BID 01/16/17 [ History] Ketotifen Fumarate [Zaditor] 1 drop OP BID 01/16/17 [History] LORazepam [Ativan] 1 mg PO Q8H PRN 01/16/17 [History] Menthol [Biofreeze] 1 appl TP TID 01/16/17 [History] Cefdinir [Omnicef] 300 mg PO BID 7 Days 01/18/17 [Rx] Allergies/Adverse Reactions: Allergies No Known Allergies Allergy (Verified 03/15/15 09:38) Date of admission: 01/16/17 15:37 Primary care physician: John Bowden MD Consults: 01/17/17 08:01 Consult to Art History Professor [CONS] Routine Reason for SW Consult: Patient is from [facility] Discharging clinician: Tamiko Valencia Anticipated date of discharge: 01/18/17 - Patient Status Disposition: Transfer Inpatient Rehab Fac Condition: Fair Functional capacity at discharge: bed bound Overall status at discharge: patient is back to baseline - Discharge Instructions Follow Up With: John Bowden MD [Primary Care Provider] - Magan Mortensen MD [Partnered Physician] - Forms: ED Satisfaction Letter, Work/School Release - Diet and Activity Activity: as per physical therapy Diet: advance to your usual diet Interval History: Ms. Jolly is a 61 year old female with history of DVT, PE, multiple CVAs, with residual left-sided weakness, seizure disorder, GERD, anxiety, who presented from her long-term care facility with complaints of right-sided abdominal pain. She has a long-term indwelling catheter. A CT scan was performed which showed bilateral distal ureteral stones with evidence of bilateral hydronephrosis. Her renal function was okay at 1.19 upon admission. She was afebrile. She was admitted for IV antibiotics and further care. Overnight she has noted some nausea. She has had some low-grade temperature. White blood cell count has slightly elevated as has her creatinine. Urology was consulted and she underwent bilateral ureteroscopy, laser lithotripsy, and stent placement. She remained stable postprocedure, clinically at baseline. She has no fever or urinary symptoms, urine culture growing Proteus mirabilis, she was treated with IV ceftriaxone in the hospital. She is being discharged today to [facility] in stable condition on oral antibiotics and will follow up with urology as outpatient in 10-14 days. Hospital course: Ms. Jolly is a 61 year old female - Time Spent with Patient Total time spent providing and/or coordinating discharge services: - Constitutional Vitals: Temp Pulse Resp BP Pulse Ox 98.7 F 76 17 132/67 97 01/18/17 12:21 01/18/17 12:21 01/18/17 12:21 01/18/17 12:21 01/18/17 12:21 General appearance: Present: A&O X 3, morbidly obese Exam: - Head Head exam: Present: atraumatic, normocephalic - Eye Eye exam: Present: PERRL, conjuntiva pink, sclera anicteric Pupils: Present: PERRL - Neck Neck exam general surgery: Present: supple, trachea midline. Absent: lymphadenopathy - Respiratory Respiratory exam: Present: CTAB. Absent: accessory muscle use, rales, rhonchi, wheezes - Cardiovascular Cardiovascular exam: Present: RRR, +S1, +S2. Absent: diastolic murmur, gallop, rubs, systolic murmur - GI/Abdominal GI/Abdominal exam: Present: normal bowel sounds, soft, tenderness (right sided) , no peritoneal signs. Absent: distended - Extremities Exam Extremities exam: Present: warm, radial pulses palpable and symetrical. Absent : calf tenderness, cyanotic, pedal edema - Neurological Exam Neurological exam: Present: CN II-XII intact, oriented X3. Absent: no focal deficits, strengths equal and symetr throughout, facial droop, speech deficit - Skin Skin exam: Present: dry, intact - VTE Documentation of Mechanical Device: Intermittent pneumatic compression device
[2017-01-18 16:32] VITALS: BP 130/78
[2017-01-18] MEDS ORDERED: *HR* Rivaroxaban 10 MG TABLET PO SCH (17:00)
--- NOTE | 2017-01-18 18:05 | Physician Discharge Referral ---
"ExtendedCare Referral Info Transfer To: [facility] Provider in Charge: win peterson Institutional Level of Care: Intermediate - - Diagnosis (1) Obstructive uropathy Status: Acute (2) Urinary tract infection Status: Acute (3) Renal calculus, bilateral Status: Acute (4) Seizure disorder Status: Acute - Transfer Medications Prescriptions: Cefdinir [Omnicef] 300 mg PO BID 7 Days Home Medications: LevETIRAcetam [Keppra] 1,500 mg PO BID 04/23/15 [History] Melatonin [Melatin] 3 mg PO HS 04/23/15 [History] Multivit with Iron-Minerals [Compete] 1 tab PO QAM 04/23/15 [History] Omeprazole [PriLOSEC] 20 mg PO QAM 04/23/15 [History] Simvastatin [Zocor] 20 mg PO QPM 04/23/15 [History] Citalopram [CeleXA] 40 mg PO DAILY 04/24/15 [History] Quetiapine Fumarate [Seroquel] 50 mg PO QAM 04/24/15 [History] Quetiapine Fumarate [Seroquel] 100 mg PO HS 04/24/15 [History] Rivaroxaban [Xarelto] 20 mg PO DAILY 04/24/15 [History] Dextran 70/Hypromellose [Artificial Tears Eye Drops] 1 drop OP BID 01/16/17 [ History] Ketotifen Fumarate [Zaditor] 1 drop OP BID 01/16/17 [History] LORazepam [Ativan] 1 mg PO Q8H PRN 01/16/17 [History] Menthol [Biofreeze] 1 appl TP TID 01/16/17 [History] Cefdinir [Omnicef] 300 mg PO BID 7 Days 01/18/17 [Rx] Allergies/Adverse Reactions: Allergies No Known Allergies Allergy (Verified 03/15/15 09:38) - Respiratory Orders Oxygen / L per min (2l) Smoking Cessation: Smoking cessation has been advised. For more information, call the [employer] Tobacco Quit Line at 8-379-STSX-NOW. - Advance Directives Code Status: Full Code - Rehabiliation Orders Rehab Potential: Fair Rehab Orders: Evaluation for Physical Therapy, Evaluation for Occupational Therapy - Diet Orders Regular CERTIFICATION: I certify that the transfer of the above named patient to an Extended Care Facility is necessary for the continuing treatment of the diagnosis listed. The above information is true and accurate reflection of patient's current condition. Confidential - Redisclosure prohibited without a patient's written consent."
== END 2017-01-18 19:55 | DRG 660 ==
LOC: EMEROO 11:43 → 3ANU 11:43
PROVIDERS: ADMIT Hospitalist; ATTEND Internal Medicine Endocrinology, Diabetes & Metabolism

== ENCOUNTER 2017-09-04 16:55 | Inpatient (IN) ==
[2017-09-04] MEDS ORDERED: 0.9 % Sodium Chloride 1,000 ML IVC ONE ×2 (17:04→18:23)
[2017-09-04] MEDS ORDERED: cefTRIAXone 1,000 MG in Water for inj. (sterile) 10 ML IVP ONE ×2 (17:10→20:34)
--- NOTE | 2017-09-04 17:46 | Emergency Department Note ---
Disposition Clinical Impression: Left ureteral calculus, Confusion, Pyelonephritis UTI (urinary tract infection) Qualifiers: Urinary tract infection type: site unspecified Hematuria presence: with hematuria Qualified Code(s): N39.0 - Urinary tract infection, site not specified Sepsis Qualifiers: Sepsis type: sepsis due to unspecified organism Qualified Code(s): A41.9 - Sepsis, unspecified organism Disposition: Admitted As Inpatient Condition: Fair Referrals: Ami Swift TRANSFORMATION ANALYST [Primary Care Provider] - Forms: ED Satisfaction Letter Time of Disposition: 21:06 General Adult HPI - General Chief complaint: ED Altered Mental Status Stated complaint: ams Time Seen by Provider: 09/04/17 17:01 Source: family, EMS Limitations: no limitations Nursing Notes Reviewed: Yes Vital Signs Reviewed: Yes - History of Present Illness HPI Narrative: Patient is a 62-year-old female that presents to the emergency department for altered mental status. Family states that they had concern that she is not acting appropriately and seems to be confused. They state this is been ongoing for the past 3 days. The family member states that they had concern that she could possibly urinary tract infection getting to her having a Clemente catheter that has increased sediment and blood. She states that the Clemente catheter is been in for approximately 2 weeks. Pain Scale: 0 - Related Data Home Medications Medication Instructions Recorded Confirmed LevETIRAcetam [Keppra] 1,500 mg PO BID 04/23/15 01/16/17 Melatonin [Melatin] 3 mg PO HS 04/23/15 01/16/17 Multivit with Iron-Minerals 1 tab PO QAM 04/23/15 01/16/17 [Compete] Omeprazole [PriLOSEC] 20 mg PO QAM 04/23/15 01/16/17 Simvastatin [Zocor] 20 mg PO QPM 04/23/15 01/16/17 Citalopram [CeleXA] 40 mg PO DAILY 04/24/15 01/16/17 Quetiapine Fumarate [Seroquel] 50 mg PO QAM 04/24/15 01/16/17 Quetiapine Fumarate [Seroquel] 100 mg PO HS 04/24/15 01/16/17 Rivaroxaban [Xarelto] 20 mg PO DAILY 04/24/15 01/16/17 Dextran 70/Hypromellose 1 drop OP BID 01/16/17 01/16/17 [Artificial Tears Eye Drops] Ketotifen Fumarate [Zaditor] 1 drop OP BID 01/16/17 01/16/17 LORazepam [Ativan] 1 mg PO Q8H PRN 01/16/17 01/16/17 Menthol [Biofreeze] 1 appl TP TID 01/16/17 01/16/17 Previous Rx's Medication Instructions Recorded Cefdinir [Omnicef] 300 mg PO BID 7 Days capsule 01/18/17 Allergies Allergy/AdvReac Type Severity Reaction Status Date / Time No Known Allergies Allergy Verified 03/15/15 09:38 Limitations: ROS unobtainable due to patients medical condition Past Medical History - Past Medical History Medical history: Reports: CVA, hyperlipidemia, hypertension, seizures, other Surgical history: Reports: cholecystectomy, hysterectomy, other Psychiatric history: Reports: anxiety, depression, schizophrenia [employer] history: Reports: bilateral tubal ligation - Social History Smoking Status: Never smoker Smokeless Tobacco Status: No Alcohol use: Reports: none Drug use: Reports: none Physical Exam - General Limitations: altered mental status General appearance: alert, in no apparent distress - Head Head exam: atraumatic, normocephalic - Eye Eye exam: Present: normal appearance, EOMI - Neck Neck exam: Present: normal inspection, full ROM, trachea midline - Respiratory Respiratory exam: Present: normal lung sounds bilaterally. Absent: respiratory distress, wheezes - Cardiovascular Cardiovascular exam: Present: normal rhythm, tachycardia, normal heart sounds, + S1, +S2 - Abdominal Exam Abdominal exam: Present: soft, tenderness, normal bowel sounds Abdominal tenderness: Present: suprapubic, mild - Neurological Exam Neurological exam: Present: alert, oriented X3 - Psychiatric Psychiatric exam: Present: normal affect, normal mood - Skin Skin exam: Present: warm, dry, intact Course Vital Signs Temperature 99.3 F 09/04/17 16:57 Pulse Rate 120 09/04/17 16:57 Respiratory Rate 18 09/04/17 16:57 Blood Pressure 140/108 09/04/17 16:57 O2 Sat by Pulse Oximetry 96 09/04/17 16:57 Temperature 99.3 F 09/04/17 16:57 Pulse Rate 95 09/04/17 20:30 Respiratory Rate 19 09/04/17 20:30 Blood Pressure 145/88 09/04/17 20:30 O2 Sat by Pulse Oximetry 100 09/04/17 20:30 Oxygen Delivery Oxygen Delivery Nasal Cannula Procedures - Central Line Placement Right IJ Central Line Inserted*: Yes Central Line Catheter Replacement*: No Central Line Insertion: emergent Consent Obtained: verbal consent, written consent Procedural Pause: verify patient name and date of , timeout performed per policy Patient Placed on Monitor/Pulse Ox: Yes During the Procedure: clinician is wearing sterile gloves, cap, mask,& gown during insertion, sterile field and sterile technique are maintained, patient's face is covered with drape or mask and wearing a cap, everyone in room is wearing a mask Central Line Prep: Chlorhexidine scrub Prep the Procedure Site: apply chloraprep to the skin using a back and forth scrubbing motion, apply chloraprep for 30 seconds (upper body), 1-2 min ( femoral sites), allow prep to dry, drape the patient with a full body drape Local Anesthetic: lidocaine 1%, with epi Amount of anesthesia used (mL): 2 Ultrasound Used for Placement: Yes Central Line Lumen Inserted: triple Post Procedure: sutured in place, good blood return, all ports aspirated, flushed, capped, sterile dressing applied, guide wire removed and visualized Post Procedure X-Ray: tip of catheter in good position, no pneumothorax seen Patient Tolerated Procedure: well Complications: none Name of Clinician Inserting Central Line: Dr Carolina Clinician Assisting/Completing Checklist: Dr Ruiz Date: 09/04/17 Time: 20:43 Medical Decision Making - [facility] Narrative Medical decision making narrative: The patient presented with possible altered mental status. Ordered a sepsis workup on this patient including a CBC, BMP, lactic acid hepatic panel, troponin , chest x-ray EKG, CT of the head abdomen pelvis. There is a high likelihood that the patient has a urinary tract infection based on her urine and her urinary catheter. Start the patient on intravenous fluids and IV antibiotics. The patient's Clemente has been replaced after multiple attempts. Patient appears to have acute kidney injury with a creatinine of 2.39 and a Lactic acid of 5.9. I called and spoke with the hospitalist and they have requested that a central line be placed. We have placed a central line in the emergency department without any complication. They have accepted the patient to their service the patient be admitted to the hospital for further evaluation. I have also spoken with urology was reviewed this case and does not feel that this is a kidney stone within the distal left ureter due to having reviewed previous CT scans and this having been present approximately 2 years ago. There is concern for urinary tract infection so the patient has been started on Rocephin. Patient had an elevated sodium so will be give half normal saline for fluid resuscitation. The patient is currently stable and maintaining her blood pressure. Patient will be admitted to the hospital at this time for further evaluation and management. The post film from the central line showed good placement and no pneumothorax. - Medical Records Medical records reviewed: Yes I reviewed the patient's medical records. - Lab Data Lab results reviewed: Yes I reviewed the patient's lab results. Result diagrams: 09/04/17 17:52 09/04/17 17:52 Lab Results 09/04/17 09/04/17 09/04/17 Range/Units 17:52 17:52 17:52 WBC 10.1 D (4.3-11.1) K/mcL RBC 5.73 H (3.82-4.97) M/mcL Hgb 15.3 (11.5-15.4) g/dL Hct 51.9 H (35.3-44.9) % MCV 90.6 (83.0-100.0) fL MCH 26.7 L (28.0-33.3) pg MCHC 29.5 L (31.6-35.5) g/dL RDW 14.5 (11.5-14.5) % Plt Count 186 (140-400) K/mcL MPV 10.5 (9.4-12.4) fL Immature Gran % 0.7 (0-4) % Seg Neutrophils % 93.9 % Lymphocytes % 3.6 % Monocytes % 1.7 % Eosinophils % 0.0 % Basophils % 0.1 % Neutrophils # 9.5 H (1.6-8.9) K/mcL Lymphocytes # 0.4 L (0.6-4.6) K/mcL Monocytes # 0.2 (0.0-1.3) K/mcL Eosinophils # 0.0 (0.0-0.6) K/mcL Basophils # 0.0 (0.0-0.2) K/mcL PT 18.9 H (9.4-12.1) Seconds INR 1.7 APTT 31.1 (26.0-36.0) Seconds Sodium 148 H (136-145) mEq/L Potassium 3.2 L (3.5-5.1) mEq/L Chloride 113 H (98-107) mEq/L Carbon Dioxide 19 L (23-29) mEq/L BUN 21 (8-23) mg/dL Creatinine 2.38 H (0.60-1.20) mg/dL Est GFR ( Amer) 25 L (> 60) Est GFR (Non-Af Amer) 21 L (> 60) BUN/Creatinine Ratio 9 (6-26) Glucose 260 H (70-105) mg/dL Calculated Osmolality 318 H (280-300) Lactic Acid (0.5-2.2) mmol/L Calcium 9.6 (8.6-10.3) mg/dL Phosphorus 2.7 (2.7-4.5) mg/dL Magnesium 1.5 L (1.6-2.6) mg/dL Total Bilirubin 0.7 (0.3-1.0) mg/dL Direct Bilirubin 0.3 H (0.0-0.2) mg/dL Indirect Bilirubin 0.4 (0.0-1.2) mg/dL AST 19 (13-39) Units/L ALT 20 (7-52) Units/L Alkaline Phosphatase 68 (34-104) Units/L Troponin I (< 0.04) ng/mL B-Natriuretic Peptide (Less than 100) pg/mL Serum Total Protein 8.7 (6.4-8.9) g/dL Albumin 3.9 (3.5-5.7) g/dL Globulin 4.8 H (2.4-3.5) g/dL Albumin/Globulin Ratio 0.8 L (1.1-2.2) Beta-Hydroxybutyric Acd 0.85 H (0.02-0.27) mmol/L Ur Specimen Adequacy Urine Color (Yellow) Urine Clarity (Clear) Urine pH (5.0-8.0) pH Units Ur Specific Lee (1.010-1.025) Urine Protein (Neg-Trace) mg/dL Urine Glucose (UA) (Normal) mg/dL Urine Ketones (Negative) mg/dL Urine Blood (Negative) Urine Nitrite (Negative) Urine Bilirubin (Negative) Urine Urobilinogen (Normal) mg/dL Ur Leukocyte Esterase (Negative) Urine Microscopic RBC (0-3) per hpf Urine Microscopic WBC (0-3) per hpf Ur Squamous Epith Cells (None-Few) per lpf Amorphous Sediment (Few) Urine Bacteria (None-Few) per hpf Ur Culture Indicated? (NO) 09/04/17 09/04/17 09/04/17 Range/Units 17:52 17:52 17:52 WBC (4.3-11.1) K/mcL RBC (3.82-4.97) M/mcL Hgb (11.5-15.4) g/dL Hct (35.3-44.9) % MCV (83.0-100.0) fL MCH (28.0-33.3) pg MCHC (31.6-35.5) g/dL RDW (11.5-14.5) % Plt Count (140-400) K/mcL MPV (9.4-12.4) fL Immature Gran % (0-4) % Seg Neutrophils % % Lymphocytes % % Monocytes % % Eosinophils % % Basophils % % Neutrophils # (1.6-8.9) K/mcL Lymphocytes # (0.6-4.6) K/mcL Monocytes # (0.0-1.3) K/mcL Eosinophils # (0.0-0.6) K/mcL Basophils # (0.0-0.2) K/mcL PT (9.4-12.1) Seconds INR APTT (26.0-36.0) Seconds Sodium (136-145) mEq/L Potassium (3.5-5.1) mEq/L Chloride (98-107) mEq/L Carbon Dioxide (23-29) mEq/L BUN (8-23) mg/dL Creatinine (0.60-1.20) mg/dL Est GFR ( Amer) (> 60) Est GFR (Non-Af Amer) (> 60) BUN/Creatinine Ratio (6-26) Glucose (70-105) mg/dL Calculated Osmolality (280-300) Lactic Acid 5.9 H* (0.5-2.2) mmol/L Calcium (8.6-10.3) mg/dL Phosphorus (2.7-4.5) mg/dL Magnesium (1.6-2.6) mg/dL Total Bilirubin (0.3-1.0) mg/dL Direct Bilirubin (0.0-0.2) mg/dL Indirect Bilirubin (0.0-1.2) mg/dL AST (13-39) Units/L ALT (7-52) Units/L Alkaline Phosphatase (34-104) Units/L Troponin I < 0.03 (< 0.04) ng/mL B-Natriuretic Peptide 56 (Less than 100) pg/mL Serum Total Protein (6.4-8.9) g/dL Albumin (3.5-5.7) g/dL Globulin (2.4-3.5) g/dL Albumin/Globulin Ratio (1.1-2.2) Beta-Hydroxybutyric Acd (0.02-0.27) mmol/L Ur Specimen Adequacy Urine Color (Yellow) Urine Clarity (Clear) Urine pH (5.0-8.0) pH Units Ur Specific Lee (1.010-1.025) Urine Protein (Neg-Trace) mg/dL Urine Glucose (UA) (Normal) mg/dL Urine Ketones (Negative) mg/dL Urine Blood (Negative) Urine Nitrite (Negative) Urine Bilirubin (Negative) Urine Urobilinogen (Normal) mg/dL Ur Leukocyte Esterase (Negative) Urine Microscopic RBC (0-3) per hpf Urine Microscopic WBC (0-3) per hpf Ur Squamous Epith Cells (None-Few) per lpf Amorphous Sediment (Few) Urine Bacteria (None-Few) per hpf Ur Culture Indicated? (NO) 09/04/17 Range/Units 18:16 WBC (4.3-11.1) K/mcL RBC (3.82-4.97) M/mcL Hgb (11.5-15.4) g/dL Hct (35.3-44.9) % MCV (83.0-100.0) fL MCH (28.0-33.3) pg MCHC (31.6-35.5) g/dL RDW (11.5-14.5) % Plt Count (140-400) K/mcL MPV (9.4-12.4) fL Immature Gran % (0-4) % Seg Neutrophils % % Lymphocytes % % Monocytes % % Eosinophils % % Basophils % % Neutrophils # (1.6-8.9) K/mcL Lymphocytes # (0.6-4.6) K/mcL Monocytes # (0.0-1.3) K/mcL Eosinophils # (0.0-0.6) K/mcL Basophils # (0.0-0.2) K/mcL PT (9.4-12.1) Seconds INR APTT (26.0-36.0) Seconds Sodium (136-145) mEq/L Potassium (3.5-5.1) mEq/L Chloride (98-107) mEq/L Carbon Dioxide (23-29) mEq/L BUN (8-23) mg/dL Creatinine (0.60-1.20) mg/dL Est GFR ( Amer) (> 60) Est GFR (Non-Af Amer) (> 60) BUN/Creatinine Ratio (6-26) Glucose (70-105) mg/dL Calculated Osmolality (280-300) Lactic Acid (0.5-2.2) mmol/L Calcium (8.6-10.3) mg/dL Phosphorus (2.7-4.5) mg/dL Magnesium (1.6-2.6) mg/dL Total Bilirubin (0.3-1.0) mg/dL Direct Bilirubin (0.0-0.2) mg/dL Indirect Bilirubin (0.0-1.2) mg/dL AST (13-39) Units/L ALT (7-52) Units/L Alkaline Phosphatase (34-104) Units/L Troponin I (< 0.04) ng/mL B-Natriuretic Peptide (Less than 100) pg/mL Serum Total Protein (6.4-8.9) g/dL Albumin (3.5-5.7) g/dL Globulin (2.4-3.5) g/dL Albumin/Globulin Ratio (1.1-2.2) Beta-Hydroxybutyric Acd (0.02-0.27) mmol/L Ur Specimen Adequacy See below A Urine Color Dark Yellow (Yellow) Urine Clarity Cloudy A (Clear) Urine pH 6.5 (5.0-8.0) pH Units Ur Specific Lee 1.017 (1.010-1.025) Urine Protein >=300 H (Neg-Trace) mg/dL Urine Glucose (UA) 100 H (Normal) mg/dL Urine Ketones Trace H (Negative) mg/dL Urine Blood Large H (Negative) Urine Nitrite Negative (Negative) Urine Bilirubin Moderate H (Negative) Urine Urobilinogen Normal (Normal) mg/dL Ur Leukocyte Esterase Large H (Negative) Urine Microscopic RBC TNTC H (0-3) per hpf Urine Microscopic WBC Present (0-3) per hpf Ur Squamous Epith Cells Present (None-Few) per lpf Amorphous Sediment Present (Few) Urine Bacteria Present (None-Few) per hpf Ur Culture Indicated? YES A (NO) - Radiology Data Radiology results reviewed: Yes I reviewed the patient's radiology results. Chest X-Ray 09/04/17 17:04 IMPRESSION: Stable portable study. D/ / Tracy Nuno Cha, MD / Tracy Nuno Cha, MD Interpreting Provider: Tracy Nuno Cha, MD Abdomen/Pelvis CT 09/04/17 17:05 IMPRESSION: Bilateral hydronephrosis, left greater than right. Obstructing stone is suspected in the distal left ureter. Stones remain in the kidneys bilaterally, left greater than right. . Obstructing stone seen in distal right ureter previously is no longer noted. Small amount of gas is seen within the bladder, likely due to Clemente catheter insertion. D/ / Marco Fofana MD / Marco Fofana MD Interpreting Provider: Marco Fofana MD Head CT 09/04/17 17:05 IMPRESSION: No acute intracranial abnormality. D/ / Tracy Nuno Cha, MD / Tracy Nuno Cha, MD Interpreting Provider: Tracy Nuno Cha, MD - EKG Data EKG #1 EKG attestation: Yes I reviewed and interpreted this EKG. EKG results narrative: EKG showed a sinus tachycardia at a rate of 118 bpm, WA interval of 128, Q evangelical 98, QTC of 431. No STEMI is noted on this EKG. Critical Care Time Critical Care Time: Yes Total Critical Care Time: 45 Attestation: Critical care performed: Time is exclusive of separately billable procedures. Time includes: direct patient care, patient reassessment, coordination of patient care, interpretation of data (laboratory data, radiology data, and respiratory data), review of patient's medical records, medical consultation and documentation of patient care. Procedures included in critical care time: Procedures excluded from critical care time: Attestation Statement - Attestation Attestation: I, Tay Ruiz DO, examined this patient [id number] and my medical decision-making was reviewed with Dr. Janes Carolina, Resident Physician. I agree with the documented findings, disposition and treatment plan as described except to the extent set forth below. Please see my progress notes for details. 62-year-old female presents emergency room by EMS for evaluation of altered mentation and confusion. Vital signs on presentation were tachycardic, borderline febrile, tachypneic. Patient's family is concerned because of the last for 5 days she has been more confused at home. She has a chronic indwelling Clemente catheter at this time. My physical exam shows a female that is in no specific distress but is significantly confused. She is alert answers questions inappropriately. Patient will be evaluated for infectious etiology, intracranial pathology, about arrangements at this point. Patient's family was not initially at the bedside so screening labs including sepsis evaluation CT guidance into the abdomen on for a catheter change and urinalysis were ordered. EKG and labs . Will have vital signs monitored and stabilized. Fluid restarted this time 2 peripheral IVs. Blood pressure is stable on presentation. Family is at the bedside after approximately 30 minutes and they are confirming that she has been confused but is still acting as appropriate as she ever does. Patient has baseline weakness secondary to previous illness or stroke. On physical exam is morbid obese female she is confused. Mucous membranes appear to be stable. She has difficulty with completing conversational thoughts at this time. Patient will be aggressively resuscitated secondary to concern for decompensation. Chest x-ray CT of the head and CTA abdomen ordered. IV access and fluids running at this time. Patient is potentially critically ill based on the presentation her medical comorbidities. See detailed workup and physical exam, [facility] ventricle medical decision-making disposition was a physician's note. Possibly 45 minutes of critical care participation in the treatment course. Patient has clear lungs on initial auscultation heart is regular but tachycardic. Abdomen soft with mild tenderness suprapubically. She has no signs of pitting edema. She does follow commands at baseline but has difficulty conversing. No other acute neurologic deficits or issues noted initially. 2000 Patient found to have a new the elevated white blood cell count 6.1-10.1. She also has neutrophilia. Lab derangements are noted including hyponatremia, hypokalemia, acute kidney injury, hyperglycemia and lactic acid elevation. Serum ketones were added on after reviewing the labs and a slightly elevated as well. Patient does not meet all the criteria for diabetic ketoacidosis this could be inflammatory response secondary to infectious etiology. Stress test. This time as well as potassium rider. Patient is otherwise resting comfortably. Blood pressure is stable. Chest x-ray reviewed showing stable. Position of central line. Patient will be admitted to the ICU in a critical medical condition. Patient family informed and comfortable with the plan. The central line was placed in the emergency room at the request of the hospitalist physician secondary to management of sepsis at this point. We accommodated without any issue. See detailed documentation of that procedure and resident physician's note. I was directly available and at the bedside throughout the entire procedure and visualize the guidewire inside the internal jugular vein without any issue. Patient stable at the time of admission.
[2017-09-04 18:02] LABS: Basophils % 0.1 %; Hematocrit 51.9 % (35.3-44.9); Hemoglobin 15.3 g/dL (11.5-15.4); Immature Granulocytes % 0.7 % (0-4); Lymphocytes # 0.4 K/mcL (0.6-4.6); Lymphocytes % 3.6 %; Mean Corpuscular HGB Conc 29.5 g/dL (31.6-35.5); Mean Corpuscular Hemoglobin 26.7 pg (28.0-33.3); Mean Corpuscular Volume 90.6 fL (83.0-100.0); Mean Platelet Volume 10.5 fL (9.4-12.4); Monocytes # 0.2 K/mcL (0.0-1.3); Monocytes % 1.7 %; Neutrophils # 9.5 K/mcL (1.6-8.9); Platelet Count 186 K/mcL (140-400); Red Blood Count 5.73 M/mcL (3.82-4.97); Red Cell Distribution Width 14.5 % (11.5-14.5); Segmented Neutrophils % 93.9 %
[2017-09-04 18:09] LABS: INR 1.7; Prothrombin Time 18.9 Seconds (9.4-12.1)
[2017-09-04 18:11] LABS: Activated Partial Thrombo Time 31.1 Seconds (26.0-36.0)
[2017-09-04 18:21] LABS: Albumin 3.9 g/dL (3.5-5.7); Albumin/Globulin Ratio 0.8 (1.1-2.2); Bilirubin,Direct 0.3 mg/dL (0.0-0.2); Bilirubin,Indirect 0.4 mg/dL (0.0-1.2); Bilirubin,Total 0.7 mg/dL (0.3-1.0); Calcium 9.6 mg/dL (8.6-10.3); Globulin 4.8 g/dL (2.4-3.5); Magnesium 1.5 mg/dL (1.6-2.6); Phosphorous 2.7 mg/dL (2.7-4.5); Potassium 3.2 mEq/L (3.5-5.1); Total Protein 8.7 g/dL (6.4-8.9)
[2017-09-04 18:36] LABS: Bilirubin,Urine Moderate (Negative); Blood,Urine Large (Negative); Clarity,Urine Cloudy (Clear); Color,Urine Dark Yellow (Yellow); Glucose,Urine (UA) 100 mg/dL (Normal); Ketones,Urine Trace mg/dL (Negative); Leukocyte Esterase,Urine Large (Negative); Nitrite,Urine Negative (Negative); PH,Urine 6.5 pH Units (5.0-8.0); Protein,Urine >=300 mg/dL (Neg-Trace); Specific Gravity,Urine 1.017 (1.010-1.025); Urobilinogen,Urine Normal (Normal)
[2017-09-04] MEDS ORDERED: 0.9 % Sodium Chloride 500 ML IVC ONE (18:36)
[2017-09-04 18:37] LABS: Amorphous Sediment,Urine Present (Few); Bacteria,Urine Present per hpf (None-Few); RBC,Urine TNTC per hpf (0-3); Squamous Epithelial Cell,Urine Present per lpf (None-Few); WBC,Urine Present per hpf (0-3)
[2017-09-04 21:14] LABS: Beta-Hydroxybutyric Acid 0.85 mmol/L (0.02-0.27)
[2017-09-04] MEDS ORDERED: Hydrocortisone Sodium Succ 100 MG/2 ML VIAL IVP ONE (21:26)
[2017-09-04] MEDS ORDERED: Acetaminophen 325 MG TABLET PO PRN (21:37)
[2017-09-04] MEDS ORDERED: Naloxone 0.4 MG/ML INJ IVP PRN (21:37)
[2017-09-04] MEDS ORDERED: Ondansetron 4 MG/2 ML VIAL IVP PRN (21:37)
[2017-09-04] MEDS ORDERED: Acetaminophen 650 MG RECTAL SUPP RC PRN (21:37)
[2017-09-04 21:38] LABS: ABG Base Excess -6 mEq/L (-2 to 3); ABG HCO3 18 mEq/L (21-27); ABG Oxygen Saturation 100 % (95-98); ABG PCO2 29 mmHg (35-45); ABG PO2 185 mmHg (85-104); ABG TCO2 19 mEq/L (20-26)
[2017-09-04] MEDS ORDERED: *HR* Dextrose 50 % in Water (Syg) 50 ML SYRINGE IVP PRN (21:53)
[2017-09-04] MEDS ORDERED: Dextrose Gel 15 GM/37.5 ML TUBE PO PRN ×2 (21:53)
[2017-09-04] MEDS ORDERED: D5% in Water 1,000 ML IVC PRN (21:53)
--- NOTE | 2017-09-04 22:23 | Internal Med History&Physical ---
Date of Encounter: 09/04/17 Time of Encounter: 20:25 Assessment and Plan (1) Severe sepsis Current visit: Yes Status: Acute 1. Secondary to UTI from chronic indwelling catheter. 2. Blood and urine cultures obtained. 3. I reviewed old urine cultures -- most recent organisms sensitive to Ceftriaxone. Will place on high dose Ceftriaxone. 4. Aggressive IVF for hemodynamic support. 5. May likely need Pressors and/or steroids for hemodynamic support. 6. CVC placed in ER per my request. 7. ICU monitoring and care. 8. Will trend lactate and ABG. If necessary, will intubate for overwhelming sepsis and airway stabilization. A total of 65 minutes critical care time spent assessing, treating, and coordinating care of patient. (2) Acute renal failure Current visit: Yes Status: Acute 1. Likely due to sepsis and intravascular volume depletion in conjunction with obstructive uropathy. 2. Aggressive IVF hydration. 3. Urology consulted in ER. 4. Will monitor renal function and consult nephrology if necessary. However, I suspect ARF due to obstruction and relief of obstruction would improve renal function. Close monitoring afterwards for post-obstructive diuresis and further renal decline. Qualifiers: Acute renal failure type: with other specified pathological lesion Qualified Code(s): N17.8 - Other acute kidney failure (3) Obstructive uropathy Current visit: No Status: Acute 1. Urology consulted by ER. 2. Patient likely will need cystoscopy in the morning per urology. (4) Seizure disorder Current visit: No Status: Chronic 1. Seizure precautions. 2. Resume home meds once verified. (5) DVT prophylaxis Current visit: No Status: Acute 1. Patient on Xarelto for history of DVT/PE. 2. Will place on Heparin drip once last home dose of Xarelto verified and I speak with pharmacy. NOTE: Patient has not taken any of her meds today; last dose of Xarelto was yesterday or last evening. Will start heparin gtt tonight with no initial bolus. Internal Medicine - H&P: HPI Chief complaint: confusion; somnolent Admitted From: Emergency Dept Plans for Post Hospital Care: Home History of present illness: Ms. Jolly is a 62 year old female who presents to the ER tonight with complaints of confusion, somnolence, and dark/cloudy urine in her Clemente catheter. Patient has a chronic indwelling Clemente catheter due to chronic bladder retention. Workup in the ER revealed patient to have laboratory findings concerning for severe sepsis. She received appropriate fluid boluses in the ER, and her blood pressure was relatively stable initially. I was asked to admit the patient. I reviewed her labs and her vital signs. I asked the ER staff to place a central venous catheter as I anticipate she will likely need aggressive IV fluid and pressor support tonight. I went to the ER to see her shortly thereafter. The patient is confused, disoriented, and somnolent. She is maintaining her airway and does converse, but she is not at her baseline mental state/cognitive state. Her daughter is present at the bedside and she provides all the history to me. During my initial assessment and exam in the ER, patient had cool extremities in her hands and her feet with peripheral cyanosis in her nailbeds in both the hands and feet. She is maintaining her blood pressure presently, but I anticipate she will likely need aggressive hemodynamic support. I called our intensive care unit and requested a bed for the patient in the intensive care unit. I reviewed her labs and imaging with the ER staff. Urologist was consulted and will see patient in the morning. She has bilateral hydronephrosis secondary to kidney stone. Her lactic acidosis has improved with fluid resuscitation. Her daughter states her mental status has improved slightly since the fluid administration. She very well may need intubation and mechanical ventilation tonight if her mental status declines and/or she is unable to protect her airway from overwhelming sepsis. I explained this to the patient and her daughter. Her daughter understands and voices agreement with the plan. Patient does not seem to comprehend the clinical status and her situation at the present time. According to daughter, patient has been confused and disoriented for the last 3 days. She has not had any reported fevers. Her fluid intake and oral intake have been diminished. She has had some mild vomiting and nausea but no diarrhea. She has had no cough or congestion. She has had no ill contacts. Her Clemente catheter was changed roughly 1 month ago. She is due to have urostomy placement later this week and removal of her Clemente catheter at that time. Past Med Surg Social Fam HX - Past Medical History Attestation: Yes The following information was validated with the patient. Source: old records reviewed, obtained from family Medical history: CVA, DVT, hyperlipidemia, hypertension, pulmonary embolus, seizures Psychiatric history: anxiety, depression, schizophrenia - Past Surgical History Surgical History: cholecystectomy, hysterectomy - Social History Smoking Status: Never smoker Smokeless Tobacco Status: No Alcohol use: none Drug use: none Current living situation: Home, With Family Recent Out of Country Travel Within the Last 8 Weeks: No - Family History Father Living Status: Hx Family Cardiac Disorders: Yes (Congestive heart failure) Mother Living Status: Hx Family Cardiac Disorders: Yes (Cardiac disease) Hx Family Respiratory Disorders: Yes Hx Family Cancer: No Hx Family GI Disorders: No Hx Family Endocrine Disorder: Yes (Diabetes) Hx Family Neuromuscular Disorders: No Hx Family Neurologic Disorders: Yes (Parkinsons) Hx Family HEENT Disorders: No Hx Family Autoimmune Disorders: Yes (Lupas) Internal Medicine - H&P: Meds LevETIRAcetam [Keppra] 1,500 mg PO BID 04/23/15 [History] Melatonin [Melatin] 3 mg PO HS 04/23/15 [History] Multivit with Iron-Minerals [Compete] 1 tab PO QAM 04/23/15 [History] Omeprazole [PriLOSEC] 20 mg PO QAM 04/23/15 [History] Simvastatin [Zocor] 20 mg PO QPM 04/23/15 [History] Citalopram [CeleXA] 40 mg PO DAILY 04/24/15 [History] Quetiapine Fumarate [Seroquel] 50 mg PO QAM 04/24/15 [History] Quetiapine Fumarate [Seroquel] 100 mg PO HS 04/24/15 [History] Rivaroxaban [Xarelto] 20 mg PO DAILY 04/24/15 [History] Dextran 70/Hypromellose [Artificial Tears Eye Drops] 1 drop OP BID 01/16/17 [ History] Ketotifen Fumarate [Zaditor] 1 drop OP BID 01/16/17 [History] LORazepam [Ativan] 1 mg PO Q8H PRN 01/16/17 [History] Menthol [Biofreeze] 1 appl TP TID 01/16/17 [History] Cefdinir [Omnicef] 300 mg PO BID 7 Days capsule 01/18/17 [Rx] 3 Allergy/AdvReac Type Severity Reaction Status Date / Time No Known Allergies Allergy Verified 03/15/15 09:38 ROS unobtainable: due to mental status (unable to obtain from patient) Review of systems: ROS obtained from daughter as follows: + for confusion, somnolence, decreased oral intake, nausea, and occasional vomiting. - for chills or night sweats, diarrhea, cough, congestion, chest pain, shortness of breath. No other ROS obtainable - Constitutional Vitals: Temp Pulse Resp BP Pulse Ox 99.3 F 95 18 127/79 99 09/04/17 16:57 09/04/17 21:35 09/04/17 21:35 09/04/17 21:35 09/04/17 21:35 General appearance: Present: A&O X 0, cooperative, mild distress. Absent: answers questions appropriately Exam: patient awake, confused, disoriented, maintaining airway, conversant - Head Head exam: Present: atraumatic, normal inspection - Eye Eye exam: Present: EOMI, PERRL. Absent: scleral icterus Pupils: Present: normal accommodation - ENT ENT exam: Present: mucous membranes dry, normal exam - Neck Neck exam general surgery: Present: full ROM, supple. Absent: lymphadenopathy, tenderness, nuchal rigidity - Respiratory Respiratory exam: Present: CTAB. Absent: accessory muscle use, chest wall tenderness, rales, rhonchi, wheezes - Cardiovascular Cardiovascular exam: Present: RRR, +S1, +S2, tachycardia (HR 90-100's ). Absent : diastolic murmur, systolic murmur - GI/Abdominal GI/Abdominal exam: Present: hypoactive bowel sounds, no peritoneal signs. Absent: guarding, hepatomegaly, mass, rebound, splenomegaly, tenderness - Extremities Exam Extremities exam: Present: cyanotic (peripheral nailbeds), normal capillary refill (markedly delayed), mottling (hands and feet). Absent: calf tenderness, joint swelling, normal inspection (cool extremities (hands and feet)), warm - Back Exam Back exam: Absent: CVA tenderness (L), CVA tenderness (R) - Neurological Exam Neurological exam: Present: altered, no focal deficits Additional comments: somnolent; easily arousable - Psychiatric Psychiatric exam: Present: flat affect Additional comments: somnolent; arousable - Skin Skin exam: Present: dry, mottled (hands and feet), warm (warm centrally; cool hands and feet). Absent: rash Internal Med - H&P Results - Labs CBC & Chem 7: 09/04/17 17:52 09/04/17 17:52 Labs: Short CBC 09/04/17 Range/Units 17:52 WBC 10.1 D (4.3-11.1) K/mcL Hgb 15.3 (11.5-15.4) g/dL Hct 51.9 H (35.3-44.9) % Plt Count 186 (140-400) K/mcL Neutrophils # 9.5 H (1.6-8.9) K/mcL BMP 09/04/17 17:52 Sodium 148 H Potassium 3.2 L Chloride 113 H Carbon Dioxide 19 L BUN 21 Creatinine 2.38 H Glucose 260 H Calcium 9.6 Cardiac Enzymes 09/04/17 Range/Units 17:52 Troponin I < 0.03 (< 0.04) ng/mL Liver Function 09/04/17 Range/Units 17:52 Total Bilirubin 0.7 (0.3-1.0) mg/dL Direct Bilirubin 0.3 H (0.0-0.2) mg/dL AST 19 (13-39) Units/L ALT 20 (7-52) Units/L Alkaline Phosphatase 68 (34-104) Units/L Albumin 3.9 (3.5-5.7) g/dL Urine 09/04/17 Range/Units 18:16 Urine Color Dark Yellow (Yellow) Urine Clarity Cloudy A (Clear) Urine pH 6.5 (5.0-8.0) pH Units Ur Specific [place] 1.017 (1.010-1.025) Urine Protein >=300 H (Neg-Trace) mg/dL Urine Glucose (UA) 100 H (Normal) mg/dL - ABG Interpretation Interpretation: ABG interpreted by ca ABG results: 09/04/17 21:35 ABG pH 7.40 ABG pCO2 29 L ABG pO2 185 H ABG HCO3 18 L ABG Total CO2 19 L ABG O2 Saturation 100 H ABG Base Excess -6 L Interpretation: respiratory alkalosis, metabolic acidosis Additional comments: metabolic acidosis with respiratory compensation - Impressions ITS Impressions Chest X-Ray 09/04/17 17:04 IMPRESSION: Stable portable study. D/ / Tracy Nuno Cha, MD / Tracy Nuno Cha, MD Interpreting Provider: Tracy Nuno Cha, MD Abdomen/Pelvis CT 09/04/17 17:05 IMPRESSION: Bilateral hydronephrosis, left greater than right. Obstructing stone is suspected in the distal left ureter. Stones remain in the kidneys bilaterally, left greater than right. . Obstructing stone seen in distal right ureter previously is no longer noted. Small amount of gas is seen within the bladder, likely due to Clemente catheter insertion. D/ / Marco Fofana MD / Marco Fofana MD Interpreting Provider: Marco Fofana MD Head CT 09/04/17 17:05 IMPRESSION: No acute intracranial abnormality. D/ / Tracy Nuno Cha, MD / Tracy Nuno Cha, MD Interpreting Provider: Tracy Nuno Cha, MD Chest X-Ray 09/04/17 20:30 IMPRESSION: Central line tip in the SVC with no pneumothorax. D/ / Rich Mcdaniels MD / Rich Mcdaniels MD Interpreting Provider: Rich Mcdaniels MD - Diagnostic Studies Chest x-ray Status: image reviewed by me (negative) CT scan - abdomen Status: image reviewed by me (Report reviewed as well: Bilateral hydronephrosis and kidney stone)
[2017-09-04 23:00] LABS: Hemoglobin A1C 5.8 %
[2017-09-04] MEDS ORDERED: *HR* Heparin 5,000 UNIT/ML VIAL IVP PRN (23:19)
[2017-09-04] MEDS: Norepinephrine 4 MG in D5% in Water 250 ML IVC SCH (23:57)
[2017-09-05 00:15] LABS: ABG Base Excess -4 mEq/L (-2 to 3); ABG HCO3 21 mEq/L (21-27); ABG Oxygen Saturation 97 % (95-98); ABG PCO2 37 mmHg (35-45); ABG PH 7.35 pH Units (7.32-7.45); ABG PO2 95 mmHg (85-104); ABG TCO2 22 mEq/L (20-26)
[2017-09-05] MEDS: 0.9 % Sodium Chloride 1,000 ML IVC SCH ×3 (00:19→13:10)
[2017-09-05] MEDS: Insulin LISPRO 300 UNITS/3 ML VIAL SQ SCH ×5 (00:20→22:21)
[2017-09-05] MEDS: Heparin 25,000 UNIT/500 ML D5W 25,000 UNIT/500 ML BAG IVC SCH ×2 (00:43→20:05)
[2017-09-05] MEDS ORDERED: cefTRIAXone 1,000 MG in Water for inj. (sterile) 10 ML IVP ONE (01:00)
[2017-09-05 04:09] LABS: Hematocrit 41.6 % (35.3-44.9); Immature Granulocytes % 0.9 % (0-4); Lymphocytes # 0.8 K/mcL (0.6-4.6); Mean Corpuscular Hemoglobin 26.6 pg (28.0-33.3); Mean Corpuscular Volume 88.5 fL (83.0-100.0); Mean Platelet Volume 10.9 fL (9.4-12.4); Monocytes # 1.2 K/mcL (0.0-1.3); Monocytes % 5.8 %; Neutrophils # 18.4 K/mcL (1.6-8.9); Platelet Count 156 K/mcL (140-400); Red Cell Distribution Width 14.6 % (11.5-14.5); Segmented Neutrophils % 89.3 %
[2017-09-05 04:11] LABS: Hemoglobin 12.5 g/dL (11.5-15.4)
[2017-09-05 04:14] LABS: INR 2.1; Prothrombin Time 22.7 Seconds (9.4-12.1)
[2017-09-05 04:21] LABS: Calcium 8.3 mg/dL (8.6-10.3); Magnesium 1.4 mg/dL (1.6-2.6); Potassium 3.7 mEq/L (3.5-5.1)
[2017-09-05] MEDS: Pantoprazole 40 MG VIAL IVP SCH (07:59)
[2017-09-05 08:59] LABS: Heparin anti-factor XA UFH 1.95 IU/mL (0.30-0.70)
--- NOTE | 2017-09-05 09:07 | Urology - Consult Note ---
Date of Encounter: 09/05/17 Time of Encounter: 09:04 - Assessment and Plan (1) Acute renal failure Current Visit: Yes Status: Acute Assessment and plan: Patient serum creatinine is improving overnight Soley with IV fluids and IV antibiotics. Continue with current management. Qualifiers: Acute renal failure type: with other specified pathological lesion Qualified Code(s): N17.8 - Other acute kidney failure (2) Left ureteral calculus Current Visit: Yes Status: Acute Assessment and plan: As mentioned in the history of present illness do not believe the patient has a distal left ureteral stone. If the patient fails to improve clinically we will need to consider cystoscopy and either left ureteroscopy or left ureteral stent placement. We will continue to follow along closely. (3) Urinary tract infection Current Visit: Yes Status: Acute Assessment and plan: Antibodies per primary team. Patient does have a chronic indwelling urethral catheter and lives in a residential which makes her high risk for resistant bacteria. Qualifiers: Urinary tract infection type: site unspecified Hematuria presence: with hematuria Qualified Code(s): N39.0 - Urinary tract infection, site not specified; R31.9 - Hematuria, unspecified; R31.9 - Hematuria, unspecified Urology CN:HPI Consult date: 09/05/17 Reason for consult Urology: Hydronephrosis Requesting physician: Raz Ryder History of present illness: Casie is a 62-year-old female with a history of recent admission to the ICU secondary to UTI with sepsis. Patient had CT scan done yesterday where the report showed concern for left distal ureteral stone. On personal review I believe the calcification that is mentioned is a phlebolith. Patient was not awake to answer questions this a.m. Her leukocytosis worsened overnight but her lactic acid improved. She has not required any pressors. Patient has a chronic indwelling urethral catheter secondary to incontinence. She was scheduled for suprapubic tube placement this Tuesday. Past Med Surg Social Fam HX - Past Medical History Medical history: CVA, DVT, hyperlipidemia, hypertension, pulmonary embolus, seizures Psychiatric history: anxiety, depression, schizophrenia - Past Surgical History Surgical History: cholecystectomy, hysterectomy - Social History Smoking Status: Never smoker Smokeless Tobacco Status: No Alcohol use: none Drug use: none - Family History Father Living Status: Hx Family Cardiac Disorders: Yes (Congestive heart failure) Mother Living Status: Hx Family Cardiac Disorders: Yes (Cardiac disease) Hx Family Respiratory Disorders: Yes Hx Family Cancer: No Hx Family GI Disorders: No Hx Family Endocrine Disorder: Yes (Diabetes) Hx Family Neuromuscular Disorders: No Hx Family Neurologic Disorders: Yes (Parkinsons) Hx Family HEENT Disorders: No Hx Family Autoimmune Disorders: Yes (Lupas) Medications and Allergies LevETIRAcetam [Keppra] 1,250 mg PO BID 04/23/15 [History] Omeprazole [PriLOSEC] 20 mg PO QAM 04/23/15 [History] Simvastatin [Zocor] 20 mg PO QPM 04/23/15 [History] Citalopram [CeleXA] 40 mg PO DAILY 04/24/15 [History] Quetiapine Fumarate [Seroquel] 50 mg PO QAM 04/24/15 [History] Quetiapine Fumarate [Seroquel] 100 mg PO HS 04/24/15 [History] Rivaroxaban [Xarelto] 20 mg PO DAILY 04/24/15 [History] LORazepam [Ativan] 1 mg PO Q8H PRN 01/16/17 [History] 3 Allergy/AdvReac Type Severity Reaction Status Date / Time No Known Allergies Allergy Verified 03/15/15 09:38 Review of Systems ROS unobtainable: due to mental status Exam Initial Vital Signs Temp Pulse Resp BP Pulse Ox 99.3 F 120 18 140/108 96 09/04/17 16:57 09/04/17 16:57 09/04/17 16:57 09/04/17 16:57 09/04/17 16:57 - General physical appearance Present: well developed, well nourished - Respiratory Present: normal respiratory effort - Cardiovascular Cardiovascular exam IM: RRR - Abdomen Abdomen: Present: soft, non tender - Integumentary Present: no rash Urology Results - Labs 09/05/17 04:02 09/05/17 04:02 Abnormal lab results WBC 20.6 K/mcL (4.3-11.1) H D 09/05/17 04:02 MCH 26.6 pg (28.0-33.3) L 09/05/17 04:02 MCHC 30.0 g/dL (31.6-35.5) L 09/05/17 04:02 RDW 14.6 % (11.5-14.5) H 09/05/17 04:02 Neutrophils # 18.4 K/mcL (1.6-8.9) H 09/05/17 04:02 PT 22.7 Seconds (9.4-12.1) H 09/05/17 04:02 APTT 125.0 Seconds (26.0-36.0) H* D 09/05/17 07:30 Heparin Anti-Xa, Unfract 1.95 IU/mL (0.30-0.70) H* 09/05/17 07:30 ABG Base Excess -4 mEq/L (-2 to 3) L 09/05/17 00:10 Sodium 147 mEq/L (136-145) H 09/05/17 04:02 Chloride 119 mEq/L (98-107) H 09/05/17 04:02 Carbon Dioxide 21 mEq/L (23-29) L 09/05/17 04:02 Creatinine 1.63 mg/dL (0.60-1.20) H 09/05/17 04:02 Est GFR ( Amer) 39 (> 60) L 09/05/17 04:02 Est GFR (Non-Af Amer) 32 (> 60) L 09/05/17 04:02 Glucose 217 mg/dL (70-105) H 09/05/17 04:02 POC Glucose 198 (58-89) H 09/04/17 23:05 Hemoglobin A1c 5.8 % (-5.6) H 09/04/17 22:17 Calculated Osmolality 313 (280-300) H 09/05/17 04:02 Calcium 8.3 mg/dL (8.6-10.3) L 09/05/17 04:02 Magnesium 1.4 mg/dL (1.6-2.6) L 09/05/17 04:02 Direct Bilirubin 0.3 mg/dL (0.0-0.2) H 09/04/17 17:52 Globulin 4.8 g/dL (2.4-3.5) H 09/04/17 17:52 Albumin/Globulin Ratio 0.8 (1.1-2.2) L 09/04/17 17:52 Beta-Hydroxybutyric Acd 0.85 mmol/L (0.02-0.27) H 09/04/17 17:52 Ur Specimen Adequacy See below A 09/04/17 18:16 Urine Clarity Cloudy (Clear) A 09/04/17 18:16 Urine Protein >=300 mg/dL (Neg-Trace) H 09/04/17 18:16 Urine Glucose (UA) 100 mg/dL (Normal) H 09/04/17 18:16 Urine Ketones Trace mg/dL (Negative) H 09/04/17 18:16 Urine Blood Large (Negative) H 09/04/17 18:16 Urine Bilirubin Moderate (Negative) H 09/04/17 18:16 Ur Leukocyte Esterase Large (Negative) H 09/04/17 18:16 Urine Microscopic RBC TNTC per hpf (0-3) H 09/04/17 18:16 Ur Culture Indicated? YES (NO) A 09/04/17 18:16 Diabetes panel 09/05/17 Range/Units 04:02 Sodium 147 H (136-145) mEq/L Potassium 3.7 (3.5-5.1) mEq/L Chloride 119 H (98-107) mEq/L Carbon Dioxide 21 L (23-29) mEq/L BUN 19 (8-23) mg/dL Creatinine 1.63 H (0.60-1.20) mg/dL Glucose 217 H (70-105) mg/dL Calcium 8.3 L (8.6-10.3) mg/dL Calcium panel 09/05/17 Range/Units 04:02 Calcium 8.3 L (8.6-10.3) mg/dL Pituitary panel 09/05/17 Range/Units 04:02 Sodium 147 H (136-145) mEq/L Potassium 3.7 (3.5-5.1) mEq/L Chloride 119 H (98-107) mEq/L Carbon Dioxide 21 L (23-29) mEq/L BUN 19 (8-23) mg/dL Creatinine 1.63 H (0.60-1.20) mg/dL Glucose 217 H (70-105) mg/dL Calcium 8.3 L (8.6-10.3) mg/dL Adrenal panel 09/05/17 Range/Units 04:02 Sodium 147 H (136-145) mEq/L Potassium 3.7 (3.5-5.1) mEq/L Chloride 119 H (98-107) mEq/L Carbon Dioxide 21 L (23-29) mEq/L BUN 19 (8-23) mg/dL Creatinine 1.63 H (0.60-1.20) mg/dL Glucose 217 H (70-105) mg/dL Calcium 8.3 L (8.6-10.3) mg/dL All other labs normal. - Imaging CT scan - abdomen: image reviewed CT scan - pelvis: image reviewed Consult Discharge Plan - Plan Referrals: Ami Swift, INSPECTION CLERK [Primary Care Provider] -
[2017-09-05] MEDS ORDERED: cefTRIAXone 2,000 MG in Water for inj. (sterile) 20 ML 20 ML IVP SCH (13:00)
[2017-09-05 13:38] LABS: Acinetobacter baumannii by PCR Not Detected (Not Detect); Candida albicans by PCR Not Detected (Not Detect); Candida glabrata by PCR Not Detected (Not Detect); Candida krusei by PCR Not Detected (Not Detect); Candida parapsilosis by PCR Not Detected (Not Detect); Candida tropicalis by PCR Not Detected (Not Detect); Enterococcus by PCR Not Detected (Not Detect); Escherichia coli by PCR ***DETECTED*** (Not Detect); Klebsiella oxytoca by PCR Not Detected (Not Detect); Klebsiella pneumoniae by PCR Not Detected (Not Detect); Pseudomonas aeruginosa by PCR Not Detected (Not Detect); Serratia marcescens by PCR Not Detected (Not Detect); Staphylococcus aureus by PCR Not Detected (Not Detect); Streptococcus agalactiae(B)PCR Not Detected (Not Detect); Streptococcus by PCR Not Detected (Not Detect); Streptococcus pneumoniae PCR Not Detected (Not Detect); Streptococcus pyogenes (A) PCR Not Detected (Not Detect); blaKPC Carbapenem-Resist Gene Not Detected (Not Detect)
[2017-09-05] MEDS: Piperacillin/Tazobactam 3.375 GM/200 ML BAG IVPB SCH ×2 (16:35→23:34)
[2017-09-05] MEDS: levETIRAcetam 250 MG TABLET PO SCH (18:11)
[2017-09-05] MEDS: Norepinephrine 4 MG in D5% in Water 250 ML IVC SCH (20:05)
--- NOTE | 2017-09-06 03:03 | Internal Med Progress Note ---
Date of Encounter: 09/05/17 Time of Encounter: 11:43 - Assessment and plan (1) Severe sepsis Current Visit: Yes Status: Acute Assessment and plan: Patient was given 5+ L of IV fluid and currently normotensive. She had a WBC of 5,000 and was afebrile. She is on Rocephin. AM labs today showed jump of white count to 20k, preliminary cultures show GNR. Although there may have been several hours between antibiotic therapy and the CBC drawn, I will broaden therapy with Zosyn until cultures return. (2) Acute renal failure Current Visit: Yes Status: Acute Assessment and plan: Urology following in case this is related to obstructive uropathy, recommendations appreciated. Based on Urology eval, renal calculus does not seem to be causing obstruction. patient renal function is improving with IVF alone. Will continue current therapy. Qualifiers: Acute renal failure type: with other specified pathological lesion Qualified Code(s): N17.8 - Other acute kidney failure (3) Seizure disorder Current Visit: No Status: Chronic (4) GERD (gastroesophageal reflux disease) Current Visit: No Status: Acute Qualifiers: Esophagitis presence: esophagitis presence not specified Qualified Code(s) : K21.9 - Gastro-esophageal reflux disease without esophagitis (5) DVT prophylaxis Current Visit: No Status: Acute - Subjective Interval history: Daughter present in room. Patient mental status improved significantly per daughter, but she is not at her baseline. Patient can verbalize but slowly. - Constitutional Vitals: Temp Pulse Resp BP Pulse Ox 98.7 F 76 18 103/58 90 09/05/17 19:00 09/06/17 02:00 09/06/17 02:00 09/06/17 02:00 09/06/17 02:00 General appearance: Present: cooperative, answers questions appropriately Exam: Gen: patient responds to questions appropriately, there is some delays with response CVS: RRR Lungs: CTAB Abd: Soft, NT/ND Ext: no edema Internal Medicine: Result - Labs CBC & Chem 7: 09/05/17 04:02 09/05/17 04:02 Labs: Short CBC 09/05/17 Range/Units 04:02 WBC 20.6 H D (4.3-11.1) K/mcL Hgb 12.5 D (11.5-15.4) g/dL Hct 41.6 (35.3-44.9) % Plt Count 156 (140-400) K/mcL Neutrophils # 18.4 H (1.6-8.9) K/mcL BMP 09/05/17 04:02 Sodium 147 H Potassium 3.7 Chloride 119 H Carbon Dioxide 21 L BUN 19 Creatinine 1.63 H Glucose 217 H Calcium 8.3 L Cardiac Enzymes 09/05/17 Range/Units 04:02 Troponin I < 0.03 (< 0.04) ng/mL - ABG Interpretation ABG results: ABG ABG pH 7.35 pH Units (7.32-7.45) 09/05/17 00:10 ABG pCO2 37 mmHg (35-45) 09/05/17 00:10 ABG pO2 95 mmHg (85-104) D 09/05/17 00:10 ABG O2 Saturation 97 % (95-98) 09/05/17 00:10 PT/INR, D-dimer PT 22.7 Seconds (9.4-12.1) H 09/05/17 04:02 - VTE Documentation of Mechanical Device: Intermittent pneumatic compression device Consult Discharge Plan - Plan Referrals: Ami Swift, CHALKER SOLES [Primary Care Provider] -
[2017-09-06 03:39] LABS: Basophils % 0.2 %; Eosinophils # 0.1 K/mcL (0.0-0.6); Eosinophils % 0.8 %; Hematocrit 34.3 % (35.3-44.9); Hemoglobin 10.4 g/dL (11.5-15.4); Immature Granulocytes % 0.6 % (0-4); Immature Platelets 4.3 % (1.1-6.1); Lymphocytes # 1.1 K/mcL (0.6-4.6); Mean Corpuscular HGB Conc 30.3 g/dL (31.6-35.5); Mean Corpuscular Hemoglobin 27.1 pg (28.0-33.3); Mean Corpuscular Volume 89.3 fL (83.0-100.0); Mean Platelet Volume 11.1 fL (9.4-12.4); Monocytes # 0.7 K/mcL (0.0-1.3); Neutrophils # 8.9 K/mcL (1.6-8.9); Platelet Count 115 K/mcL (140-400); Red Blood Count 3.84 M/mcL (3.82-4.97); Red Cell Distribution Width 14.9 % (11.5-14.5); Segmented Neutrophils % 82.4 %
[2017-09-06 03:49] LABS: INR 1.5; Prothrombin Time 16.3 Seconds (9.4-12.1)
[2017-09-06] MEDS: Heparin 25,000 UNIT/500 ML D5W 25,000 UNIT/500 ML BAG IVC SCH ×2 (03:50→21:35)
[2017-09-06 03:54] LABS: Activated Partial Thrombo Time 55.7 Seconds (26.0-36.0)
[2017-09-06 04:12] LABS: Calcium 7.9 mg/dL (8.6-10.3); Potassium 3.1 mEq/L (3.5-5.1)
[2017-09-06] MEDS: Insulin LISPRO 300 UNITS/3 ML VIAL SQ SCH ×3 (04:23→18:49)
[2017-09-06] MEDS: levETIRAcetam 250 MG TABLET PO SCH ×2 (05:30→18:48)
[2017-09-06] MEDS: Piperacillin/Tazobactam 3.375 GM/200 ML BAG IVPB SCH ×2 (07:37→21:01)
[2017-09-06] MEDS: Pantoprazole 40 MG VIAL IVP SCH (07:37)
--- NOTE | 2017-09-06 07:51 | Urology Progress Note ---
Date of Encounter: 09/06/17 Time of Encounter: 07:49 - Assessment and Plan (1) Urinary tract infection Current Visit: Yes Status: Acute Assessment and plan: 62 year old woman with uti and sepsis. She is doing better today. Blood culture is still pending. She is on Zosyn. I will await for resolution of her urinary tract infection prior to placing her SP tube. We may need to change her OR date. Appreciate primary team. We'll follow along. Qualifiers: Urinary tract infection type: site unspecified Hematuria presence: with hematuria Qualified Code(s): N39.0 - Urinary tract infection, site not specified; R31.9 - Hematuria, unspecified; R31.9 - Hematuria, unspecified Progress Note Narrative: 62 year old woman with neurogenic bladder and indwelling urethral catheter. She was admitted for a UTI. She is feeling better today. Blood culture was positive for GNR. Objective Initial Vital Signs Temp Pulse Resp BP Pulse Ox 99.3 F 120 18 140/108 96 09/04/17 16:57 09/04/17 16:57 09/04/17 16:57 09/04/17 16:57 09/04/17 16:57 - General physical appearance Present: well developed, well nourished, no distress - Respiratory Present: normal respiratory effort - Abdomen Present: soft - Genitourinary Urine Appearance: Present: Clear - Labs 09/06/17 03:32 09/06/17 03:32 Diabetes panel 09/06/17 Range/Units 03:32 Sodium 150 H (136-145) mEq/L Potassium 3.1 L (3.5-5.1) mEq/L Chloride 122 H (98-107) mEq/L Carbon Dioxide 23 (23-29) mEq/L BUN 21 (8-23) mg/dL Creatinine 1.43 H (0.60-1.20) mg/dL Glucose 121 H (70-105) mg/dL Calcium 7.9 L (8.6-10.3) mg/dL Calcium panel 09/06/17 Range/Units 03:32 Calcium 7.9 L (8.6-10.3) mg/dL Pituitary panel 09/06/17 Range/Units 03:32 Sodium 150 H (136-145) mEq/L Potassium 3.1 L (3.5-5.1) mEq/L Chloride 122 H (98-107) mEq/L Carbon Dioxide 23 (23-29) mEq/L BUN 21 (8-23) mg/dL Creatinine 1.43 H (0.60-1.20) mg/dL Glucose 121 H (70-105) mg/dL Calcium 7.9 L (8.6-10.3) mg/dL Adrenal panel 09/06/17 Range/Units 03:32 Sodium 150 H (136-145) mEq/L Potassium 3.1 L (3.5-5.1) mEq/L Chloride 122 H (98-107) mEq/L Carbon Dioxide 23 (23-29) mEq/L BUN 21 (8-23) mg/dL Creatinine 1.43 H (0.60-1.20) mg/dL Glucose 121 H (70-105) mg/dL Calcium 7.9 L (8.6-10.3) mg/dL - VTE Documentation of Mechanical Device: Intermittent pneumatic compression device Consult Discharge Plan - Plan Referrals: Ami Swift, SPEECH PATHOLOGY TEACHER [Primary Care Provider] -
--- NOTE | 2017-09-06 11:23 | Internal Med Progress Note ---
Date of Encounter: 09/06/17 Time of Encounter: 11:20 - Assessment and plan (1) Septic shock Current Visit: Yes Status: Acute Assessment and plan: Acute metabolic encephalopathy secondary to septic shock due to gram-negative bacteremia possibly Escherichia coli likely from UTI with indwelling Clemente catheter Lactic acid was 5.9 Continue Zosyn day 2 as the patient did not respond well to Rocephin Final blood culture report still pending The patient is a DNR CC arrest DNI Continue IV fluids, may send to the regular floor (2) Acute metabolic encephalopathy Current Visit: Yes Status: Acute (3) History of pulmonary embolism Current Visit: Yes Status: Acute Assessment and plan: History of DVT, pulmonary emboli and multiple CVAs Hold Xarelto due to acute renal failure Continue heparin drip that can be held if any urologic procedures as scheduled (4) History of CVA (cerebrovascular accident) Current Visit: Yes Status: Acute (5) Seizures Current Visit: No Status: Chronic Assessment and plan: Resume Keppra (6) Hypokalemia Current Visit: No Status: Acute Assessment and plan: Replete as needed (7) Acute renal failure Current Visit: Yes Status: Acute Assessment and plan: Urology following in case this is related to obstructive uropathy, recommendations appreciated. Based on Urology eval, renal calculus does not seem to be causing obstruction. patient renal function is improving with IVF alone. Qualifiers: Acute renal failure type: with other specified pathological lesion Qualified Code(s): N17.8 - Other acute kidney failure (8) Hypernatremia Current Visit: Yes Status: Acute Assessment and plan: Switch IV fluids to D5 with 10 mEq of potassium at 75 mL an hour - Subjective Interval history: Confused, disoriented in time, denies any chest pain or shortness of breath, very poor historian, denies any pain, no nausea or vomiting, no diarrhea - Constitutional Vitals: Temp Pulse Resp BP Pulse Ox 97.8 F 72 10 104/71 95 09/06/17 07:30 09/06/17 10:00 09/06/17 10:00 09/06/17 10:00 09/06/17 10:00 General appearance: Present: cooperative, A&O X 2, morbidly obese, answers questions appropriately - Head Head exam: Present: atraumatic, normocephalic - Eye Eye exam: Present: PERRL, conjuntiva pink, sclera anicteric Pupils: Present: PERRL - Neck Neck exam general surgery: Present: supple, trachea midline. Absent: lymphadenopathy - Respiratory Respiratory exam: Present: decreased breath sounds, CTAB. Absent: accessory muscle use, rales, rhonchi, wheezes - Cardiovascular Cardiovascular exam: Present: RRR, +S1, +S2. Absent: diastolic murmur, gallop, rubs, systolic murmur - GI/Abdominal GI/Abdominal exam: Present: normal bowel sounds, soft, no peritoneal signs. Absent: distended, tenderness - Extremities Exam Extremities exam: Present: warm, radial pulses palpable and symmetrical. Absent : calf tenderness, cyanotic, pedal edema Additional comments: Indwelling Clemente catheter - Neurological Exam Neurological exam: Present: CN II-XII intact, no focal deficits. Absent: oriented X3 (Disoriented in time), pronater drift, facial droop, speech deficit - Skin Skin exam: Present: dry, intact Internal Medicine: Result - Labs CBC & Chem 7: 09/06/17 03:32 09/06/17 03:32 Labs: Short CBC 09/06/17 Range/Units 03:32 WBC 10.9 (4.3-11.1) K/mcL Hgb 10.4 L D (11.5-15.4) g/dL Hct 34.3 L (35.3-44.9) % Plt Count 115 L (140-400) K/mcL Neutrophils # 8.9 (1.6-8.9) K/mcL BMP 09/06/17 03:32 Sodium 150 H Potassium 3.1 L Chloride 122 H Carbon Dioxide 23 BUN 21 Creatinine 1.43 H Glucose 121 H Calcium 7.9 L - ABG Interpretation ABG results: ABG ABG pH 7.35 pH Units (7.32-7.45) 09/05/17 00:10 ABG pCO2 37 mmHg (35-45) 09/05/17 00:10 ABG pO2 95 mmHg (85-104) D 09/05/17 00:10 ABG O2 Saturation 97 % (95-98) 09/05/17 00:10 PT/INR, D-dimer PT 16.3 Seconds (9.4-12.1) H 09/06/17 03:32 - VTE Documentation of Mechanical Device: Intermittent pneumatic compression device Consult Discharge Plan - Plan Referrals: Ami Swift, LUPIS [Primary Care Provider] -
[2017-09-06] MEDS ORDERED: Potassium Chloride Elixir 20 MEQ/15 ML UDC PO ONE (12:00)
[2017-09-06] MEDS: POTASSIUM CHLORIDE IVC SCH (13:30)
[2017-09-06] MEDS: D5 IVC SCH (13:30)
[2017-09-06] MEDS: WATER IVC SCH (13:30)
[2017-09-06 18:35] LABS: C.difficile Toxin A/B by PCR Not detected (Not detect); Campylobacter by PCR Not detected (Not detect); Plesiomonas shigelloides PCR Not detected (Not detect); Salmonella PCR Not detected (Not detect); Vibrio PCR Not detected (Not detect)
[2017-09-06 18:36] LABS: Adenovirus F 40/41 PCR Not detected (Not detect); Astrovirus PCR Not detected (Not detect); Cryptosporidium by PCR Not detected (Not detect); Cyclospora cayetanensis PCR Not detected (Not detect); E. coli O157 by PCR Not detected (Not detect); Entamoeba histolytica PCR Not detected (Not detect); Enteroaggregative E.coli(EAEC) Not detected (Not detect); Enteropathogenic E.coli(EPEC) Not detected (Not detect); Enterotoxigenic E.coli (ETEC) Not detected (Not detect); Giardia lamblia PCR Not detected (Not detect); Norovirus GI/GII PCR Not detected (Not detect); Rotavirus A PCR Not detected (Not detect); Sapovirus PCR Not detected (Not detect); Shig/EnteroinvasiveE coli EIEC Not detected (Not detect); Shigalike tox-prod E coli STEC Not detected (Not detect); Vibrio cholerae PCR Not detected (Not detect); Yersinia enterocolitica PCR Not detected (Not detect)
[2017-09-06] MEDS: *HR* Heparin 5,000 UNIT/ML VIAL IVP PRN (21:38)
[2017-09-07] MEDS: Piperacillin/Tazobactam 3.375 GM/200 ML BAG IVPB SCH ×3 (01:05→17:30)
[2017-09-07] MEDS: Insulin LISPRO 300 UNITS/3 ML VIAL SQ SCH ×3 (01:08→13:12)
[2017-09-07] MEDS: WATER IVC SCH (03:11)
[2017-09-07] MEDS: POTASSIUM CHLORIDE IVC SCH (03:11)
[2017-09-07] MEDS: D5 IVC SCH (03:11)
[2017-09-07 04:22] LABS: Basophils % 0.4 %; Eosinophils # 0.2 K/mcL (0.0-0.6); Eosinophils % 3.1 %; Hematocrit 30.5 % (35.3-44.9); Immature Granulocytes % 0.6 % (0-4); Lymphocytes # 1.3 K/mcL (0.6-4.6); Mean Corpuscular HGB Conc 30.5 g/dL (31.6-35.5); Mean Corpuscular Volume 88.7 fL (83.0-100.0); Mean Platelet Volume 11.3 fL (9.4-12.4); Monocytes # 0.5 K/mcL (0.0-1.3); Monocytes % 6.7 %; Neutrophils # 5.1 K/mcL (1.6-8.9); Platelet Count 102 K/mcL (140-400); Red Blood Count 3.44 M/mcL (3.82-4.97); Red Cell Distribution Width 14.7 % (11.5-14.5); Segmented Neutrophils % 71.2 %
[2017-09-07 04:23] LABS: Hemoglobin 9.3 g/dL (11.5-15.4)
[2017-09-07 05:12] LABS: Calcium 7.9 mg/dL (8.6-10.3)
[2017-09-07] MEDS: levETIRAcetam 250 MG TABLET PO SCH ×2 (06:30→17:30)
--- NOTE | 2017-09-07 07:04 | Urology Progress Note ---
Date of Encounter: 09/07/17 Time of Encounter: 07:01 - Assessment and Plan (1) Urinary tract infection Current Visit: Yes Status: Acute Assessment and plan: 62-year-old woman with a urinary tract infection and sepsis. She has gram- negative rods in her bloodstream. Cultures are still pending. Continue IV antibiotic and await culture and sensitivities. Qualifiers: Urinary tract infection type: site unspecified Hematuria presence: with hematuria Qualified Code(s): N39.0 - Urinary tract infection, site not specified; R31.9 - Hematuria, unspecified; R31.9 - Hematuria, unspecified (2) Neurogenic bladder Current Visit: Yes Status: Acute Assessment and plan: She has a history of a neurogenic bladder and a long-term indwelling catheter. She is scheduled for a suprapubic tube placement on September 09, 2017. She seems to be clinically improving and has been on IV antibiotic. It is reasonable to proceed with this operation while she is in the hospital. Her infection seems to be resolving. I will continue to follow along. If she does seem to be a good surgical candidate, then we can proceed with her operation on Tuesday. Progress Note Narrative: Doing well this morning. No complaints. Urine is draining clear. Objective Initial Vital Signs Temp Pulse Resp BP Pulse Ox 99.3 F 120 18 140/108 96 09/04/17 16:57 09/04/17 16:57 09/04/17 16:57 09/04/17 16:57 09/04/17 16:57 - General physical appearance Present: well developed, well nourished, no distress - Respiratory Present: normal respiratory effort - Abdomen Present: soft - Genitourinary Urine Appearance: Present: Clear - Labs 09/07/17 03:45 09/07/17 03:45 Diabetes panel 09/07/17 Range/Units 03:45 Sodium 145 (136-145) mEq/L Potassium 3.0 L (3.5-5.1) mEq/L Chloride 118 H (98-107) mEq/L Carbon Dioxide 22 L (23-29) mEq/L BUN 15 (8-23) mg/dL Creatinine 1.33 H (0.60-1.20) mg/dL Glucose 118 H (70-105) mg/dL Calcium 7.9 L (8.6-10.3) mg/dL Calcium panel 09/07/17 Range/Units 03:45 Calcium 7.9 L (8.6-10.3) mg/dL Pituitary panel 09/07/17 Range/Units 03:45 Sodium 145 (136-145) mEq/L Potassium 3.0 L (3.5-5.1) mEq/L Chloride 118 H (98-107) mEq/L Carbon Dioxide 22 L (23-29) mEq/L BUN 15 (8-23) mg/dL Creatinine 1.33 H (0.60-1.20) mg/dL Glucose 118 H (70-105) mg/dL Calcium 7.9 L (8.6-10.3) mg/dL Adrenal panel 09/07/17 Range/Units 03:45 Sodium 145 (136-145) mEq/L Potassium 3.0 L (3.5-5.1) mEq/L Chloride 118 H (98-107) mEq/L Carbon Dioxide 22 L (23-29) mEq/L BUN 15 (8-23) mg/dL Creatinine 1.33 H (0.60-1.20) mg/dL Glucose 118 H (70-105) mg/dL Calcium 7.9 L (8.6-10.3) mg/dL - VTE Documentation of Mechanical Device: Intermittent pneumatic compression device Consult Discharge Plan - Plan Referrals: Ami Swift, LUPIS [Primary Care Provider] -
--- NOTE | 2017-09-07 07:55 | Electrocardiograph Report ---
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
[2017-09-07] MEDS: Pantoprazole 40 MG VIAL IVP SCH (08:46)
[2017-09-07] MEDS: Heparin 25,000 UNIT/500 ML D5W 25,000 UNIT/500 ML BAG IVC SCH (13:19)
--- NOTE | 2017-09-07 14:26 | Internal Med Progress Note ---
Date of Encounter: 09/07/17 Time of Encounter: 10:00 - Assessment and plan (1) Septic shock Current Visit: Yes Status: Acute Assessment and plan: Acute toxic encephalopathy secondary to septic shock due to E. Coli bacteremia from UTI with indwelling Horn catheter Blood cx growing E. Coli Continue empirical abx Zosyn Cont gentle hydration Talked to pt's daughter and explained to her about current care (2) Toxic encephalopathy Current Visit: Yes Status: Acute Assessment and plan: Due to severe sepsis with UTI Improved (3) Neurogenic bladder Current Visit: Yes Status: Acute Assessment and plan: She does have chronic neurogenic bladder - with indwelling horn cath Urology planning on doing supra pubic cath as scheduled on 09/09/17 (4) Ureteral calculi Current Visit: Yes Status: Acute Assessment and plan: As per urology..they are non obstructive cont monitoring closely for now (5) Hypokalemia Current Visit: No Status: Acute Assessment and plan: Replete as needed (6) Urinary tract infection Current Visit: Yes Status: Acute Assessment and plan: Urine cx - mixed cont empirical abx - Zosyn Qualifiers: Urinary tract infection type: site unspecified Hematuria presence: with hematuria Qualified Code(s): N39.0 - Urinary tract infection, site not specified; R31.9 - Hematuria, unspecified; R31.9 - Hematuria, unspecified (7) Acute renal failure Current Visit: Yes Status: Acute Assessment and plan: Improving with IV hydration Urology following in case this is related to obstructive uropathy, recommendations appreciated. Qualifiers: Acute renal failure type: with other specified pathological lesion Qualified Code(s): N17.8 - Other acute kidney failure (8) History of pulmonary embolism Current Visit: Yes Status: Acute Assessment and plan: History of DVT, pulmonary emboli and multiple CVAs Hold Xarelto due to acute renal failure Continue heparin drip that can be held if any urologic procedures as scheduled (9) History of CVA (cerebrovascular accident) Current Visit: Yes Status: Acute (10) Hypernatremia Current Visit: Yes Status: Acute Assessment and plan: Improving cont IVF - Subjective Interval history: Ms. Jolly is a 62 year old female who presents to the ER with complaints of confusion, somnolence, and dark/cloudy urine in her Horn catheter. Patient has a chronic indwelling Horn catheter due to chronic bladder retention. Pt was admitted to ICU initially and started her on aggressive IV hydration and broad spec abx. Her symptoms started improving slowly. She was transferred to [facility] for further care. Today pt is more alert, awake and O x 3. Denied any CP / SOB. Still has generalized body pains. - Constitutional Vitals: Temp Pulse Resp BP Pulse Ox 97.9 F 63 16 104/66 98 09/07/17 11:22 09/07/17 11:22 09/07/17 11:22 09/07/17 11:22 09/07/17 11:22 General appearance: Present: cooperative, A&O X 3, morbidly obese, answers questions appropriately - Head Head exam: Present: atraumatic, normal inspection - Neck Neck exam general surgery: Present: supple - Respiratory Respiratory exam: Present: decreased breath sounds, wheezes (mild). Absent: rales, respiratory distress, rhonchi - Cardiovascular Cardiovascular exam: Present: +S1, +S2. Absent: tachycardia - GI/Abdominal GI/Abdominal exam: Present: normal bowel sounds, soft. Absent: rebound, rigid, tenderness - Extremities Exam Extremities exam: Absent: calf tenderness, pedal edema, tenderness - Neurological Exam Neurological exam: Present: alert, oriented X3 - Psychiatric Psychiatric exam: Present: depressed Internal Medicine: Result - Labs CBC & Chem 7: 09/07/17 03:45 09/07/17 03:45 Labs: Short CBC 09/07/17 Range/Units 03:45 WBC 7.2 (4.3-11.1) K/mcL Hgb 9.3 L (11.5-15.4) g/dL Hct 30.5 L (35.3-44.9) % Plt Count 102 L (140-400) K/mcL Neutrophils # 5.1 (1.6-8.9) K/mcL BMP 09/07/17 03:45 Sodium 145 Potassium 3.0 L Chloride 118 H Carbon Dioxide 22 L BUN 15 Creatinine 1.33 H Glucose 118 H Calcium 7.9 L - ABG Interpretation ABG results: ABG ABG pH 7.35 pH Units (7.32-7.45) 09/05/17 00:10 ABG pCO2 37 mmHg (35-45) 09/05/17 00:10 ABG pO2 95 mmHg (85-104) D 09/05/17 00:10 ABG O2 Saturation 97 % (95-98) 09/05/17 00:10 PT/INR, D-dimer PT 16.3 Seconds (9.4-12.1) H 09/06/17 03:32 - VTE Documentation of Mechanical Device: Intermittent pneumatic compression device Consult Discharge Plan - Plan Referrals: Ami Swift, PATIENT LIAISON [Primary Care Provider] -
[2017-09-07] MEDS: *HR* Heparin 5,000 UNIT/ML VIAL IVP PRN (21:45)
[2017-09-07] MEDS ORDERED: *HR* LORazepam 2 MG/ML VIAL IVP ONE (22:33)
[2017-09-07] MEDS ORDERED: *HR* LORazepam 1 MG TABLET PO ONE (22:34)
[2017-09-08] MEDS: Piperacillin/Tazobactam 3.375 GM/200 ML BAG IVPB SCH ×4 (00:02→23:49)
[2017-09-08] MEDS: Heparin 25,000 UNIT/500 ML D5W 25,000 UNIT/500 ML BAG IVC SCH ×2 (01:40→15:10)
[2017-09-08 05:15] LABS: Basophils % 0.6 %; Eosinophils # 0.2 K/mcL (0.0-0.6); Eosinophils % 3.6 %; Hematocrit 30.9 % (35.3-44.9); Hemoglobin 9.5 g/dL (11.5-15.4); Immature Granulocytes % 0.6 % (0-4); Lymphocytes # 1.4 K/mcL (0.6-4.6); Lymphocytes % 26.2 %; Mean Corpuscular HGB Conc 30.7 g/dL (31.6-35.5); Mean Corpuscular Hemoglobin 26.7 pg (28.0-33.3); Mean Corpuscular Volume 86.8 fL (83.0-100.0); Mean Platelet Volume 11.2 fL (9.4-12.4); Monocytes # 0.5 K/mcL (0.0-1.3); Monocytes % 9.5 %; Neutrophils # 3.2 K/mcL (1.6-8.9); Platelet Count 108 K/mcL (140-400); Red Blood Count 3.56 M/mcL (3.82-4.97); Red Cell Distribution Width 14.4 % (11.5-14.5); Segmented Neutrophils % 59.5 %
[2017-09-08 05:24] LABS: Activated Partial Thrombo Time 112.9 Seconds (26.0-36.0)
[2017-09-08 05:25] LABS: Heparin anti-factor XA UFH 0.72 IU/mL (0.30-0.70)
[2017-09-08 05:34] LABS: Calcium 7.9 mg/dL (8.6-10.3); Potassium 2.7 mEq/L (3.5-5.1)
[2017-09-08] MEDS: levETIRAcetam 250 MG TABLET PO SCH ×2 (05:51→18:18)
--- NOTE | 2017-09-08 07:28 | Urology Progress Note ---
Date of Encounter: 09/08/17 Time of Encounter: 07:26 - Assessment and Plan (1) Urinary tract infection Current Visit: Yes Status: Acute Assessment and plan: Continue IV antibiotic. We will eventually transitioned over to oral antibiotics upon discharge. Qualifiers: Urinary tract infection type: site unspecified Hematuria presence: with hematuria Qualified Code(s): N39.0 - Urinary tract infection, site not specified; R31.9 - Hematuria, unspecified; R31.9 - Hematuria, unspecified (2) Neurogenic bladder Current Visit: Yes Status: Acute Assessment and plan: We will perform the surgery tube placement tomorrow. She has previously been informed of all the risks of the surgery. Nothing by mouth past midnight. We will need to hold the heparin drip prior to the surgery. Progress Note Narrative: 62-year-old woman with a chronic indwelling catheter and recent urinary tract infection with sepsis is doing better today. Her urine is clear. Her blood culture showed pansensitive Escherichia coli. She has been on Zosyn. Plan for suprapubic tube placement tomorrow. Objective Initial Vital Signs Temp Pulse Resp BP Pulse Ox 99.3 F 120 18 140/108 96 09/04/17 16:57 09/04/17 16:57 09/04/17 16:57 09/04/17 16:57 09/04/17 16:57 - General physical appearance Present: other (sleeping) - Genitourinary Urine Appearance: Present: Clear - Labs 09/08/17 04:35 09/08/17 04:35 Diabetes panel 09/08/17 Range/Units 04:35 Sodium 142 (136-145) mEq/L Potassium 2.7 L (3.5-5.1) mEq/L Chloride 114 H (98-107) mEq/L Carbon Dioxide 21 L (23-29) mEq/L BUN 9 (8-23) mg/dL Creatinine 1.16 (0.60-1.20) mg/dL Glucose 117 H (70-105) mg/dL Calcium 7.9 L (8.6-10.3) mg/dL Calcium panel 09/08/17 Range/Units 04:35 Calcium 7.9 L (8.6-10.3) mg/dL Pituitary panel 09/08/17 Range/Units 04:35 Sodium 142 (136-145) mEq/L Potassium 2.7 L (3.5-5.1) mEq/L Chloride 114 H (98-107) mEq/L Carbon Dioxide 21 L (23-29) mEq/L BUN 9 (8-23) mg/dL Creatinine 1.16 (0.60-1.20) mg/dL Glucose 117 H (70-105) mg/dL Calcium 7.9 L (8.6-10.3) mg/dL Adrenal panel 09/08/17 Range/Units 04:35 Sodium 142 (136-145) mEq/L Potassium 2.7 L (3.5-5.1) mEq/L Chloride 114 H (98-107) mEq/L Carbon Dioxide 21 L (23-29) mEq/L BUN 9 (8-23) mg/dL Creatinine 1.16 (0.60-1.20) mg/dL Glucose 117 H (70-105) mg/dL Calcium 7.9 L (8.6-10.3) mg/dL - VTE Documentation of Mechanical Device: Intermittent pneumatic compression device Consult Discharge Plan - Plan Referrals: Ami Swift, [employer]ESS[employer] [Primary Care Provider] -
[2017-09-08] MEDS ORDERED: *HR* LORazepam 1 MG TABLET PO PRN (08:18)
[2017-09-08] MEDS: Pantoprazole 40 MG VIAL IVP SCH (09:04)
--- NOTE | 2017-09-08 10:08 | Internal Med Progress Note ---
Date of Encounter: 09/08/17 Time of Encounter: 10:06 - Assessment and plan (1) Septic shock Current Visit: Yes Status: Acute Assessment and plan: Acute toxic encephalopathy secondary to septic shock due to E. Coli bacteremia from UTI with indwelling Horn catheter Blood cx growing E. Coli Continue empirical abx Zosyn for now Cont gentle hydration (2) Toxic encephalopathy Current Visit: Yes Status: Acute Assessment and plan: Due to severe sepsis with UTI Improved (3) Neurogenic bladder Current Visit: Yes Status: Acute Assessment and plan: She does have chronic neurogenic bladder - with indwelling horn cath Urology planning on doing supra pubic cath as scheduled on 09/09/17 so will d/c her heparin gtt tonight (4) Ureteral calculi Current Visit: Yes Status: Acute Assessment and plan: As per urology..they are non obstructive cont monitoring closely for now (5) Hypokalemia Current Visit: No Status: Acute Assessment and plan: Cont replacing as needed (6) Urinary tract infection Current Visit: Yes Status: Acute Assessment and plan: Urine cx - mixed cont empirical abx - Zosyn Qualifiers: Urinary tract infection type: site unspecified Hematuria presence: with hematuria Qualified Code(s): N39.0 - Urinary tract infection, site not specified; R31.9 - Hematuria, unspecified; R31.9 - Hematuria, unspecified (7) Acute renal failure Current Visit: Yes Status: Acute Assessment and plan: Improving with IV hydration avoid nephro toxic meds concerned for obstructive uroparhy scheduled for supra pubic cath in AM Qualifiers: Acute renal failure type: with other specified pathological lesion Qualified Code(s): N17.8 - Other acute kidney failure (8) History of pulmonary embolism Current Visit: Yes Status: Acute Assessment and plan: History of DVT, pulmonary emboli and multiple CVAs Held Xarelto due to acute renal failure / possible surgery Currently on heparin gtt..will hold heparin tonight for surgery (9) History of CVA (cerebrovascular accident) Current Visit: Yes Status: Acute (10) Hypernatremia Current Visit: Yes Status: Acute Assessment and plan: Improving cont IVF 1/2 NS - Subjective Interval history: Ms. Jolly is a 62 year old female who presents to the ER with complaints of confusion, somnolence, and dark/cloudy urine in her Horn catheter. Patient has a chronic indwelling Horn catheter due to chronic bladder retention. Pt was admitted to ICU initially and started her on aggressive IV hydration and broad spec abx. Her symptoms started improving slowly. She was transferred to [facility] for further care. Today pt is more alert, awake and O x 3. Denied any CP / SOB. Denied any new complaints today. No events over night - Constitutional Vitals: Temp Pulse Resp BP Pulse Ox 98.2 F 74 18 108/65 93 09/08/17 00:02 09/08/17 00:02 09/08/17 00:02 09/08/17 00:02 09/08/17 00:02 General appearance: Present: cooperative, A&O X 3, morbidly obese, answers questions appropriately - Head Head exam: Present: atraumatic, normal inspection - Neck Neck exam general surgery: Present: supple - Respiratory Respiratory exam: Present: decreased breath sounds, wheezes (mild). Absent: rales, respiratory distress, rhonchi - Cardiovascular Cardiovascular exam: Present: RRR, +S1, +S2. Absent: tachycardia - GI/Abdominal GI/Abdominal exam: Present: normal bowel sounds, soft. Absent: rebound, rigid, tenderness - Extremities Exam Extremities exam: Absent: calf tenderness, pedal edema, tenderness - Neurological Exam Neurological exam: Present: alert, CN II-XII intact, oriented X3 - Psychiatric Psychiatric exam: Present: depressed Internal Medicine: Result - Labs CBC & Chem 7: 09/08/17 04:35 09/08/17 04:35 Labs: Short CBC 09/08/17 Range/Units 04:35 WBC 5.4 (4.3-11.1) K/mcL Hgb 9.5 L (11.5-15.4) g/dL Hct 30.9 L (35.3-44.9) % Plt Count 108 L (140-400) K/mcL Neutrophils # 3.2 (1.6-8.9) K/mcL BMP 09/08/17 04:35 Sodium 142 Potassium 2.7 L Chloride 114 H Carbon Dioxide 21 L BUN 9 Creatinine 1.16 Glucose 117 H Calcium 7.9 L - ABG Interpretation ABG results: ABG ABG pH 7.35 pH Units (7.32-7.45) 09/05/17 00:10 ABG pCO2 37 mmHg (35-45) 09/05/17 00:10 ABG pO2 95 mmHg (85-104) D 09/05/17 00:10 ABG O2 Saturation 97 % (95-98) 09/05/17 00:10 PT/INR, D-dimer PT 16.3 Seconds (9.4-12.1) H 09/06/17 03:32 - VTE Documentation of Mechanical Device: Intermittent pneumatic compression device Consult Discharge Plan - Plan Referrals: Aim Swift, [employer] SUR[employer]Y TAKER [Primary Care Provider] -
[2017-09-08] MEDS: 0.45 % Sodium Chloride w/KCl 20 MEQ/1,000 ML MLS IVC SCH ×2 (10:47→21:37)
[2017-09-09] MEDS: levETIRAcetam 250 MG TABLET PO SCH ×2 (05:16→17:12)
--- NOTE | 2017-09-09 07:26 | Urology Progress Note ---
Date of Encounter: 09/09/17 Time of Encounter: 07:25 - Assessment and Plan (1) Urinary tract infection Current Visit: Yes Status: Acute Assessment and plan: She has been on appropriate antibiotic. Okay to perform suprapubic tube today. She is aware of all risks. I spoke with her daughter yesterday regarding the procedure. Qualifiers: Urinary tract infection type: site unspecified Hematuria presence: with hematuria Qualified Code(s): N39.0 - Urinary tract infection, site not specified; R31.9 - Hematuria, unspecified; R31.9 - Hematuria, unspecified (2) Neurogenic bladder Current Visit: Yes Status: Acute Progress Note Narrative: Sleeping this morning. Urine has been clear. Heparin drip has been turned off. Objective Initial Vital Signs Temp Pulse Resp BP Pulse Ox 99.3 F 120 18 140/108 96 09/04/17 16:57 09/04/17 16:57 09/04/17 16:57 09/04/17 16:57 09/04/17 16:57 - General physical appearance Present: well developed, well nourished, no distress - Genitourinary Urine Appearance: Present: Clear - Labs 09/08/17 04:35 09/08/17 04:35 - VTE Documentation of Mechanical Device: Intermittent pneumatic compression device Consult Discharge Plan - Plan Referrals: Ami Swift CNP [Primary Care Provider] -
[2017-09-09] MEDS ORDERED: *HR* Propofol 200 MG/20 ML VIAL IVP ONE (08:10)
[2017-09-09] MEDS ORDERED: *HR* Midazolam HCl 2 MG/2 ML VIAL ONE (08:10)
[2017-09-09] MEDS ORDERED: *HR* FentaNYL (PF) 100 MCG/2 ML VIAL ONE (08:10)
[2017-09-09 08:47] LABS: BUN/Creatinine Ratio 5 (6-26); Blood Urea Nitrogen 5 mg/dL (8-23); Calcium 8.1 mg/dL (8.6-10.3); Carbon Dioxide 26 mEq/L (23-29); Chloride 115 mEq/L (98-107); Glucose 87 mg/dL (70-105); Osmolality,Calculated 295 (280-300); Potassium 3.1 mEq/L (3.5-5.1); Sodium 144 mEq/L (136-145); eGFR For African Americans > 60 (> 60); eGFR For Non-African Americans 53 (> 60)
--- NOTE | 2017-09-09 08:49 | Anesthesia Evaluation PreOp ---
Date of Encounter: 09/09/17 Time of Encounter: 08:47 - Past History Planned Operation: Placement Suprapubic Catheter Cardiac History: HTN, Hyperlipidemia, Other (H/O DVT with PE) Pulmonary History: Denies Any Significant HX [employer] History: Seizures (stable on meds), CVA, Other (non-traumatic brain injury 2013) Other Medical History: Renal (kidney stones), GERD, Other (H/O cervical CA S/P chemo/XRT, obesity BMI=49) Anesthesia History: No Prior Anesthetic Complications, Past Anesthesia ( hysterectomy) Alcohol Use: none Drug use: none Medications and Allergies LevETIRAcetam [Keppra] 1,250 mg PO BID 04/23/15 [History] Omeprazole [PriLOSEC] 20 mg PO QAM 04/23/15 [History] Simvastatin [Zocor] 20 mg PO QPM 04/23/15 [History] Citalopram [CeleXA] 40 mg PO DAILY 04/24/15 [History] Quetiapine Fumarate [Seroquel] 50 mg PO QAM 04/24/15 [History] Quetiapine Fumarate [Seroquel] 100 mg PO HS 04/24/15 [History] Rivaroxaban [Xarelto] 20 mg PO DAILY 04/24/15 [History] LORazepam [Ativan] 1 mg PO Q8H PRN 01/16/17 [History] 3 Allergy/AdvReac Type Severity Reaction Status Date / Time No Known Allergies Allergy Verified 03/15/15 09:38 - Meds/Allergy Pre-op Review Medications Reviewed: Yes Allergies Reviewed: Yes Beta Blockers on Current Med List: No Anesthesia Results - Labs 09/08/17 04:35 09/09/17 08:08 - Imaging EKG: report reviewed (09/04/2017 SINUS TACHYCARDIA LEFT ANTERIOR FASCICULAR BLOCK BASELINE ARTIFACT Poor R wave progression) Additional studies: 04/24/2015 Echo Impressions: LVEF 60-65%. Normal left ventricular structure and function. Normal right ventricular structure and function. This was a limited echocardiogram for EF. Anesthesia Exam Vital Signs/O2 Sat/Glucose, Most Recent Temp Pulse Resp BP Pulse Ox 97.9 F 61 14 114/71 96 09/09/17 04:54 09/09/17 04:54 09/09/17 04:54 09/09/17 04:54 09/09/17 04:54 Blood Glucose* 116 Height: 5'2''/1.57 m Weight: 267 lbs/121.5 kg NPO (# of Hours): 8 Pain Scale: 0 Pain Scale Used: Numeric (1 - 10) - HEENT Pupil (Motor): EOMI Mallampati: III Teeth: Normal, Missing Denture Type: Upper: Complete Oral Opening: Greater than 3 - [employer]OS[employer] LOC: Oriented [employer] Motor: Normal RUE, Normal LUE, Normal RLE, Normal Face, Deficit LLE [employer] Sensory: Normal: RUE, LUE, RLE, LLE, Face - Cardiac Rhythm: Regular Murmur: None - Pulmonary Breath Sounds: bilateral Clear (decreased BS) Respiratory Effort: Symmetrical Anesthesia Assess/Plan ASA Score: 3 Modified [place] Scale for Level of Consciousness: Cooperative, oriented, and tranquil Anesthetic Plan: General Monitoring Plan: Standard Monitors Recovery Plan: PACU
[2017-09-09 08:59] LABS: Basophils % 0.5 %; Eosinophils # 0.2 K/mcL (0.0-0.6); Eosinophils % 5.6 %; Hemoglobin 9.5 g/dL (11.5-15.4); Lymphocytes # 1.3 K/mcL (0.6-4.6); Lymphocytes % 30.3 %; Mean Corpuscular HGB Conc 30.6 g/dL (31.6-35.5); Mean Corpuscular Hemoglobin 26.6 pg (28.0-33.3); Mean Corpuscular Volume 86.8 fL (83.0-100.0); Monocytes # 0.4 K/mcL (0.0-1.3); Monocytes % 10.2 %; Neutrophils # 2.2 K/mcL (1.6-8.9); Platelet Count 108 K/mcL (140-400); Red Blood Count 3.57 M/mcL (3.82-4.97); Red Cell Distribution Width 14.5 % (11.5-14.5); Segmented Neutrophils % 52.4 %
[2017-09-09] MEDS ORDERED: *HR* Succinylcholine 200 MG/10 ML VIAL IVP ONE (10:57)
[2017-09-09] MEDS ORDERED: Ondansetron 4 MG/2 ML VIAL ONE (10:58)
[2017-09-09] MEDS ORDERED: Dexamethasone 4 MG/ML VIAL ONE (10:58)
[2017-09-09] MEDS ORDERED: EPHEDrine 50 MG/ML VIAL ONE (11:00)
--- NOTE | 2017-09-09 11:35 | Operative Note ---
Date of procedure: 09/09/17 Pre-op diagnosis: Neurogenic bladder Post-op diagnosis: same Procedure: Suprapubic tube placement Implants: 20 Malian two-way catheter Complications: none Anesthesia: GETA Surgeon: Magan Mortensen Was there an clinic assistant present: No Estimated blood loss (cc): 5 Specimen: bladder tissue Condition: stable Disposition: PACU Procedure in Detail: Indications: Ms. Jolly is a 62-year-old woman who has a history of urinary retention. She is catheter dependent and has perineum irritation from the catheter. She elected to undergo placement of a suprapubic tube. She was informed of the risks of the procedure including but not limited to bleeding, infection, injury to other structures, need for further procedures, and the risk of anesthesia. She is willing to proceed. Procedure: After informed consent was obtained Ms. Jolly was brought back to the operating room and placed in the supine position. A timeout was performed. Gen. anesthesia was then administered and a laryngeal mask airway was placed. She was then placed in the lithotomy position. Her genitalia and lower abdomen were then prepped and draped in usual sterile fashion. Cystoscopy was then performed and I entered into the bladder. The bladder was quite inflamed with some necrotic material locally from chronic catheter irritation. The trigone showed normal ureteral orifices. A Lowsley retractor was placed down the urethra into the bladder. An incision was made 2 fingerbreadths above the pubic symphysis. The subcutaneous tissue was dissected down using electrocautery and with pressure with the Lowsley retractor towards the anterior abdomen the bladder was entered. The Lowsley retractor was pressed out of the wound. A 20 Malian catheter was then placed into the retractor and brought into the bladder. The catheter was released and the Lowsley was closed. The retractor was then removed safely. 12 mL of sterile water was instilled into the balloon. The abdomen was washed and dried. The subcutaneous tissues were closed in an interrupted fashion using 3-0 Vicryl suture. The skin was loosely reapproximated using 4-0 Monocryl suture in a subcuticular fashion. Drain sponges were applied to the suprapubic tube. Ms. Jolly was then awakened from anesthesia and brought to the recovery room in good condition. All sponge, needle, and instrument counts were correct.
--- NOTE | 2017-09-09 12:20 | Anesthesia Evaluation Post Op ---
Date of Encounter: 09/09/17 Time of Encounter: 12:17 - Vital Signs Vital Signs: Vital Signs/O2 Sat, Most Current Temp Pulse Resp BP Pulse Ox 97.2 F L 70 20 126/70 93 09/09/17 12:08 09/09/17 12:08 09/09/17 12:08 09/09/17 12:08 09/09/17 12:08 - Lungs Lungs: Clear Ascult./Percussion - Airway Airway: Non-obstructed - Cardiovascular Regular Rate - Mental Status Mental Status: Asleep with brisk response to light stimulation - Pain Pain Scale: 3 Pain Scale used: Numeric (1 - 10) - Nausea Vomiting Nausea Vomiting: Responds to treatment with IV Meds - Hydration Hydration: NPO, Clemente catheter - Discharge PostOp Status: Transfer Patient to floor
[2017-09-09] MEDS ORDERED: *HR* LORazepam 1 MG TABLET PO PRN (12:32)
[2017-09-09] MEDS ORDERED: Acetaminophen 325 MG TABLET PO PRN (12:32)
[2017-09-09] MEDS ORDERED: Ondansetron 4 MG/2 ML VIAL IVP PRN (12:32)
[2017-09-09] MEDS ORDERED: Naloxone 0.4 MG/ML INJ IVP PRN (12:32)
[2017-09-09] MEDS ORDERED: Acetaminophen 650 MG RECTAL SUPP RC PRN (12:32)
[2017-09-09] MEDS: 0.45 % Sodium Chloride w/KCl 20 MEQ/1,000 ML MLS IVC SCH ×2 (12:57→23:47)
[2017-09-09] MEDS: *HR* OxyCODONE/APAP 5/325 TABLET PO PRN ×2 (14:45→21:59)
--- NOTE | 2017-09-09 15:19 | Internal Med Progress Note ---
Date of Encounter: 09/09/17 Time of Encounter: 15:19 - Assessment and plan (1) Septic shock Current Visit: Yes Status: Acute Assessment and plan: Acute toxic encephalopathy secondary to septic shock due to E. Coli bacteremia from UTI with indwelling Horn catheter Blood cx growing E. Coli Improved Changed abx to PO Augmentin d/c IVF (2) Toxic encephalopathy Current Visit: Yes Status: Acute Assessment and plan: Due to severe sepsis with UTI Improved (3) Neurogenic bladder Current Visit: Yes Status: Acute Assessment and plan: She does have chronic neurogenic bladder - with indwelling horn cath Had supra pubic cath today (4) Ureteral calculi Current Visit: Yes Status: Acute Assessment and plan: As per urology..they are non obstructive cont monitoring closely for now (5) Hypokalemia Current Visit: No Status: Acute Assessment and plan: Cont replacing as needed (6) Urinary tract infection Current Visit: Yes Status: Acute Assessment and plan: Urine cx - mixed.. Rejected specimen on PO Augmentin Qualifiers: Urinary tract infection type: site unspecified Hematuria presence: with hematuria Qualified Code(s): N39.0 - Urinary tract infection, site not specified; R31.9 - Hematuria, unspecified; R31.9 - Hematuria, unspecified (7) Acute renal failure Current Visit: Yes Status: Acute Assessment and plan: possible obstructive uroparhy + Sepsis + dehydration Improved with IV hydration avoid nephro toxic meds Qualifiers: Acute renal failure type: with other specified pathological lesion Qualified Code(s): N17.8 - Other acute kidney failure (8) History of pulmonary embolism Current Visit: Yes Status: Acute Assessment and plan: History of DVT, pulmonary emboli and multiple CVAs resumed Xarelto today (9) History of CVA (cerebrovascular accident) Current Visit: Yes Status: Acute (10) Hypernatremia Current Visit: Yes Status: Acute Assessment and plan: improved - Subjective Interval history: Ms. Jolly is a 62 year old female who presents to the ER with complaints of confusion, somnolence, and dark/cloudy urine in her Horn catheter. Patient has a chronic indwelling Horn catheter due to chronic bladder retention. Pt was admitted to ICU initially and started her on aggressive IV hydration and broad spec abx. Her symptoms started improving slowly. She was transferred to [facility] for further care. Today pt is more alert, awake and O x 3. Denied any CP / SOB. Denied any new complaints today. Just came back from OR after supra pubic horn placement. - Constitutional Vitals: Temp Pulse Resp BP Pulse Ox 97.2 F L 70 20 126/70 94 09/09/17 12:28 09/09/17 12:28 09/09/17 12:28 09/09/17 12:28 09/09/17 12:28 General appearance: Present: cooperative, A&O X 3, morbidly obese, answers questions appropriately - Head Head exam: Present: atraumatic, normal inspection - Neck Neck exam general surgery: Present: supple - Respiratory Respiratory exam: Present: decreased breath sounds. Absent: rales, respiratory distress, rhonchi, wheezes - Cardiovascular Cardiovascular exam: Present: RRR, +S1, +S2. Absent: tachycardia - GI/Abdominal GI/Abdominal exam: Present: normal bowel sounds, soft. Absent: rebound, rigid, tenderness - Extremities Exam Extremities exam: Absent: calf tenderness, pedal edema, tenderness - Neurological Exam Neurological exam: Present: alert, oriented X3 - Psychiatric Psychiatric exam: Present: normal affect, normal mood Internal Medicine: Result - Labs CBC & Chem 7: 09/09/17 08:08 09/09/17 08:08 Labs: Short CBC 09/09/17 Range/Units 08:08 WBC 4.1 L (4.3-11.1) K/mcL Hgb 9.5 L (11.5-15.4) g/dL Hct 31.0 L (35.3-44.9) % Plt Count 108 L (140-400) K/mcL Neutrophils # 2.2 (1.6-8.9) K/mcL BMP 09/09/17 08:08 Sodium 144 Potassium 3.1 L Chloride 115 H Carbon Dioxide 26 BUN 5 L Creatinine 1.06 Glucose 87 Calcium 8.1 L - ABG Interpretation ABG results: ABG ABG pH 7.35 pH Units (7.32-7.45) 09/05/17 00:10 ABG pCO2 37 mmHg (35-45) 09/05/17 00:10 ABG pO2 95 mmHg (85-104) D 09/05/17 00:10 ABG O2 Saturation 97 % (95-98) 09/05/17 00:10 PT/INR, D-dimer PT 16.3 Seconds (9.4-12.1) H 09/06/17 03:32 - VTE Documentation of Mechanical Device: Intermittent pneumatic compression device Consult Discharge Plan - Plan Referrals: Donna Giles CNP [Advanced Practice Nurse] - 09/16/17 1:00 pm
[2017-09-09] MEDS ORDERED: Piperacillin/Tazobactam 3.375 GM/200 ML BAG IVPB SCH (16:00)
[2017-09-09] MEDS ORDERED: *HR* Rivaroxaban 10 MG TABLET PO SCH (17:00)
[2017-09-10 05:01] LABS: Hematocrit 30.6 % (35.3-44.9); Hemoglobin 9.5 g/dL (11.5-15.4); Mean Corpuscular Hemoglobin 27.1 pg (28.0-33.3); Mean Corpuscular Volume 87.2 fL (83.0-100.0); Mean Platelet Volume 11.2 fL (9.4-12.4); Platelet Count 116 K/mcL (140-400); Red Blood Count 3.51 M/mcL (3.82-4.97); Red Cell Distribution Width 14.5 % (11.5-14.5)
[2017-09-10 05:47] LABS: BUN/Creatinine Ratio 7 (6-26); Blood Urea Nitrogen 6 mg/dL (8-23); Calcium 8.3 mg/dL (8.6-10.3); Carbon Dioxide 24 mEq/L (23-29); Chloride 113 mEq/L (98-107); Glucose 94 mg/dL (70-105); Magnesium 1.4 mg/dL (1.6-2.6); Osmolality,Calculated 289 (280-300); Sodium 141 mEq/L (136-145); eGFR For African Americans > 60 (> 60); eGFR For Non-African Americans > 60 (> 60)
[2017-09-10 06:18] LABS: Lymphocytes # 1.7 K/mcL (0.6-4.6); Monocytes # 0.4 K/mcL (0.0-1.3); Neutrophils # 3.7 K/mcL (1.6-8.9); Platelet Estimate Slight Decrease (Normal)
[2017-09-10 06:19] LABS: Reactive Lymphocytes Present (Not Present)
[2017-09-10] MEDS: levETIRAcetam 250 MG TABLET PO SCH (06:20)
[2017-09-10] MEDS ORDERED: Magnesium Sulfate 2 GM in D5% in Water 100 ML IVPB ONE (08:49)
--- NOTE | 2017-09-10 08:58 | Discharge Summary ---
Date of Encounter: 09/10/17 Time of Encounter: 08:52 - Discharge Diagnosis (1) Septic shock Priority: Primary Status: Resolved (2) Toxic encephalopathy Priority: Primary Status: Resolved (3) Urinary tract infection Priority: Primary Status: Acute Qualifiers: Urinary tract infection type: site unspecified Hematuria presence: with hematuria Qualified Code(s): N39.0 - Urinary tract infection, site not specified; R31.9 - Hematuria, unspecified; R31.9 - Hematuria, unspecified (4) Neurogenic bladder Priority: Secondary Status: Acute (5) Ureteral calculi Priority: Secondary Status: Acute (6) Hypokalemia Priority: Secondary Status: Acute (7) Acute renal failure Priority: Secondary Status: Resolved Qualifiers: Acute renal failure type: with other specified pathological lesion Qualified Code(s): N17.8 - Other acute kidney failure (8) History of pulmonary embolism Priority: Secondary Status: Acute (9) History of CVA (cerebrovascular accident) Priority: Secondary Status: Acute (10) Hypernatremia Priority: Secondary Status: Resolved - Discharge Medications Prescriptions: Amoxicillin/Clavulanate [Augmentin] 875 mg PO BIDWM #8 tablet Home Medications: LevETIRAcetam [Keppra] 1,250 mg PO BID 04/23/15 [History] Omeprazole [PriLOSEC] 20 mg PO QAM 04/23/15 [History] Simvastatin [Zocor] 20 mg PO QPM 04/23/15 [History] Citalopram [CeleXA] 40 mg PO DAILY 04/24/15 [History] Quetiapine Fumarate [Seroquel] 50 mg PO QAM 04/24/15 [History] Quetiapine Fumarate [Seroquel] 100 mg PO HS 04/24/15 [History] Rivaroxaban [Xarelto] 20 mg PO DAILY 04/24/15 [History] LORazepam [Ativan] 1 mg PO Q8H PRN 01/16/17 [History] Amoxicillin/Clavulanate [Augmentin] 875 mg PO BIDWM #8 tablet 09/10/17 [Rx] Allergies/Adverse Reactions: 3 Allergy/AdvReac Type Severity Reaction Status Date / Time No Known Allergies Allergy Verified 03/15/15 09:38 Date of admission: 09/04/17 22:38 Primary care physician: Ami Swift CNP Consults: 09/07/17 12:02 Consult to Occupational Therapy [CONS] Routine Comment: Evaluate, develop and implement POC Reason for Consult: Dec. Mobility. ECF vs HH Consult to Physical Therapy [CONS] Routine Comment: Evaluate, develop and implement POC Reason for Consult: Dec mobility. ECF vs HH - Patient Status Disposition: Home Health Service Condition: Good Overall status at discharge: patient is back to baseline - Discharge Instructions Follow Up With: Donna Giles CNP [Advanced Practice Nurse] - 09/16/17 1:00 pm - Diet and Activity Activity: increase activity as tolerated Diet: low salt diet Hospital course: Ms. 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 Patient has a chronic indwelling Horn catheter due to chronic bladder retention with neurgenic bladder. Pt was admitted to ICU initially and started her on aggressive IV hydration and broad spec abx zosyn. Her blood cx 1/ 2 sets did grow E. Coli due to UTI. Her symptoms started improving slowly.She was transferred to [facility] for further care. Pt has been doing well from last 2-3 days, remained afebrile, her WBC trended down to normal, she is more alert, awake and O x 3. She was placed on Heparin gtt initially for her DVT and PE since we held her Xarelto. Pt was evaluated by urology and recommend to continue IV abx, also did place a supra pubic catheter on 09/09/17. Post operatively pt has been doing well, pt was seen by urologist today and cleared her to go home fro their stand point. So will d/c her home with PO abx for 4 more days total 10 days course due to her complicated presentation. - Time Spent with Patient Total time spent providing and/or coordinating discharge services: - Constitutional Vitals: Temp Pulse Resp BP Pulse Ox 97.8 F 66 16 134/82 95 09/10/17 07:00 09/10/17 07:00 09/10/17 07:00 09/10/17 07:09/10/17 07:00 General appearance: Present: cooperative, A&O X 3, morbidly obese, answers questions appropriately - Head Head exam: Present: atraumatic, normal inspection - Neck Neck exam general surgery: Present: supple - Respiratory Respiratory exam: Present: decreased breath sounds. Absent: rales, respiratory distress, rhonchi, wheezes - Cardiovascular Cardiovascular exam: Present: RRR, +S1, +S2. Absent: systolic murmur, tachycardia - GI/Abdominal GI/Abdominal exam: Present: normal bowel sounds, soft. Absent: rebound, rigid, tenderness Additional comments: supra pubic cath + - Neurological Exam Neurological exam: Present: alert, oriented X3 - Psychiatric Psychiatric exam: Present: normal affect, normal mood - VTE Documentation of Mechanical Device: Intermittent pneumatic compression device
--- NOTE | 2017-09-10 09:00 | Physician Discharge Referral ---
Home Health/Hosp Referral Info Transfer to: Home Health Provider in Charge Post Discharge: PCP - Diagnosis (1) Septic shock Status: Resolved (2) Toxic encephalopathy Status: Resolved (3) Urinary tract infection Status: Acute (4) Neurogenic bladder Status: Acute (5) Ureteral calculi Status: Acute (6) Hypokalemia Status: Acute (7) Acute renal failure Status: Resolved (8) History of pulmonary embolism Status: Acute (9) History of CVA (cerebrovascular accident) Status: Acute (10) Hypernatremia Status: Resolved - Respiratory Orders Smoking Cessation: Smoking cessation has been advised. For more information, call the [place] Tobacco Quit Line at 1-424-JCKS-NOW. - Services Needed Following services are medically necessary services: Nursing - Transfer Medications Prescriptions: Amoxicillin/Clavulanate [Augmentin] 875 mg PO BIDWM #8 tablet Home Medications: LevETIRAcetam [Keppra] 1,250 mg PO BID 04/23/15 [History] Omeprazole [PriLOSEC] 20 mg PO QAM 04/23/15 [History] Simvastatin [Zocor] 20 mg PO QPM 04/23/15 [History] Citalopram [CeleXA] 40 mg PO DAILY 04/24/15 [History] Quetiapine Fumarate [Seroquel] 50 mg PO QAM 04/24/15 [History] Quetiapine Fumarate [Seroquel] 100 mg PO HS 04/24/15 [History] Rivaroxaban [Xarelto] 20 mg PO DAILY 04/24/15 [History] LORazepam [Ativan] 1 mg PO Q8H PRN 01/16/17 [History] Amoxicillin/Clavulanate [Augmentin] 875 mg PO BIDWM #8 tablet 09/10/17 [Rx] Allergies/Adverse Reactions: 3 Allergy/AdvReac Type Severity Reaction Status Date / Time No Known Allergies Allergy Verified 03/15/15 09:38 Certification: Further, I certify that my clinical findings support that this patient is homebound (i.e. absences from home require considerable and taxing effort and are for medical reasons or [facility] or infrequently or short duration when for other reasons) because: Homebound Reason: Patient requires assistance of a person or device to safely leave home Attestation: My signature below is to certify that this patient is under my care and that I, or nurse practitioner, or a physician's medical receptionist assistant working with me, has a face-to -face encounter with this patient.
[2017-09-10] MEDS: 0.45 % Sodium Chloride w/KCl 20 MEQ/1,000 ML MLS IVC SCH (09:09)
--- NOTE | 2017-09-10 09:26 | Urology Progress Note ---
Date of Encounter: 09/10/17 Time of Encounter: 09:25 - Assessment and Plan (1) Urinary tract infection Current Visit: Yes Status: Acute Assessment and plan: Consider transitioning to an oral antibiotic for a total of a 2 week course of antibiotics. Qualifiers: Urinary tract infection type: site unspecified Hematuria presence: with hematuria Qualified Code(s): N39.0 - Urinary tract infection, site not specified; R31.9 - Hematuria, unspecified; R31.9 - Hematuria, unspecified (2) Neurogenic bladder Current Visit: Yes Status: Acute Assessment and plan: She can follow up with me in 2 weeks for a wound check. Progress Note Narrative: Postoperative day #1 status post suprapubic tube placement. Her urine has been draining clear. She is doing well. Objective Initial Vital Signs Temp Pulse Resp BP Pulse Ox 99.3 F 120 18 140/108 96 09/04/17 16:57 09/04/17 16:57 09/04/17 16:57 09/04/17 16:57 09/04/17 16:57 - General physical appearance Present: well developed, well nourished, no distress - Respiratory Present: normal respiratory effort - Abdomen Present: soft - Genitourinary Urine Appearance: Present: Clear - Labs 09/10/17 03:55 09/10/17 03:55 Diabetes panel 09/10/17 Range/Units 03:55 Sodium 141 (136-145) mEq/L Potassium 4.0 D (3.5-5.1) mEq/L Chloride 113 H (98-107) mEq/L Carbon Dioxide 24 (23-29) mEq/L BUN 6 L (8-23) mg/dL Creatinine 0.91 (0.60-1.20) mg/dL Glucose 94 (70-105) mg/dL Calcium 8.3 L (8.6-10.3) mg/dL Calcium panel 09/10/17 Range/Units 03:55 Calcium 8.3 L (8.6-10.3) mg/dL Pituitary panel 09/10/17 Range/Units 03:55 Sodium 141 (136-145) mEq/L Potassium 4.0 D (3.5-5.1) mEq/L Chloride 113 H (98-107) mEq/L Carbon Dioxide 24 (23-29) mEq/L BUN 6 L (8-23) mg/dL Creatinine 0.91 (0.60-1.20) mg/dL Glucose 94 (70-105) mg/dL Calcium 8.3 L (8.6-10.3) mg/dL Adrenal panel 09/10/17 Range/Units 03:55 Sodium 141 (136-145) mEq/L Potassium 4.0 D (3.5-5.1) mEq/L Chloride 113 H (98-107) mEq/L Carbon Dioxide 24 (23-29) mEq/L BUN 6 L (8-23) mg/dL Creatinine 0.91 (0.60-1.20) mg/dL Glucose 94 (70-105) mg/dL Calcium 8.3 L (8.6-10.3) mg/dL - VTE Documentation of Mechanical Device: Intermittent pneumatic compression device Consult Discharge Plan - Plan Referrals: Donna Giles CNP [Advanced Practice Nurse] - 09/16/17 1:00 pm Prescriptions: Amoxicillin/Clavulanate [Augmentin] 875 mg PO BIDWM #8 tablet
[2017-09-10 11:19] VITALS: BP 116/78
== END 2017-09-10 15:05 | disposition home health service (06) | DRG 698 ==
LOC: EMEROO 16:55 → ICNU 22:38 → SUATTDRO 22:38 → ICNU 23:06 → 3ANU 09-06 12:43
PROVIDERS: ADMIT Pediatrics; ATTEND Family Medicine